=== PATIENT | female | born 1965 | race Caucasian/White ===

== ENCOUNTER 2017-10-22 07:32 | Inpatient (IN) | payer OTHER ==
[2017-10-22] VITALS (7 sets, daily range): BP systolic 113–144; BP diastolic 65–95; PULSE 65–119; RESP 14–18; TEMP 98–99.3; O2SAT 93–97
[~2017-10-22] VITALS: Ht 170.2 cm; Wt 85.0 kg
[~2017-10-22 07:32] MED LIST: BENZ100 PO; DIFL150T PO; LISI-515 PO
[2017-10-22] MEDS ORDERED: SODIUM CHLORIDE 0.9% FLUSH 10 ML FLUSH IV FLUSH PRN ×2 (08:00→11:45)
[2017-10-22] MEDS ORDERED: MORPHINE SULFATE 4 MG/ML INJ IV PUSH ONE (08:00)
[2017-10-22] MEDS ORDERED: ONDANSETRON HCL 4 MG/2 ML VIAL IVP ONE (08:00)
[2017-10-22] MEDS ORDERED: SODIUM CHLOR 0.9% 1000 ML INJ 1,000 ML IV ONE ×2 (08:00→09:30)
--- NOTE | 2017-10-22 08:00 | PD ---
HPI . Abdominal pain Chief Complaint: Abdominal Pain Time Seen by Provider: 07:51 Travel History International Travel<30 days: No Contact w/Intl Traveler<30days: No Traveled to known affect area: No History of Present Illness HPI This patient presents with a chief complaint of epigastric abdominal pain. Onset was last night. It is associated with emesis and diarrhea. She rates her pain 10/10 and states that she has had 10+ episodes of emesis and diarrhea. She has had associated chills. Patient reports previous gallstone pancreatitis. The gallstone pancreatitis occurred shortly after a cholecystectomy. That was about 2 years ago. She has had no further problems since that time. Her symptoms today feel similar to her symptoms when she had pancreatitis. PFSH Past Medical History Cancer: Yes (RIGHT BREAST) Chemotherapy: Yes Diminished Hearing: No Hypertension: Yes Psychiatric: No Immunizations Current: No Radiation Therapy: Yes (FINISHED A MONTH AGO) ?: Not Menopausal: Yes Past Surgical History Cholecystectomy: Yes Gynecologic Surgery: Yes (LUMPECTOMY ON RIGHT BREAST) Other Surgery: Yes Social History Alcohol Use: Yes ([facility]) Tobacco Use: No Substance Use: No Allergies-Medications (Allergen,Severity, Reaction): Coded Allergies: No Known Allergies (Unverified Allergy, Unknown, 10/22/17) Reported Meds & Prescriptions Reported Meds & Active Scripts Active Lisinopril 20 Mg Tab 20 Mg PO DAILY Review of Systems Except as stated in HPI: all other systems reviewed are Neg General / Constitutional: Positive: Chills Cardiovascular: Positive: Palpitations Gastrointestinal: Positive: Nausea, Vomiting, Diarrhea, Abdominal Pain Genitourinary: No: Urgency, Frequency, Dysuria Physical Exam Narrative GENERAL: Awake and alert and in no acute distress. SKIN: warm/dry. HEAD: Normocephalic. Atraumatic. EYES: Pupils equal and round. No scleral icterus. No injection or drainage. ENT: No nasal bleeding or discharge. Mucous membranes pink and moist. NECK: Trachea midline. Full range of motion without pain.. CARDIOVASCULAR: Regular rate and rhythm. Heart sounds are normal. RESPIRATORY: No accessory muscle use. Clear to auscultation. Breath sounds equal bilaterally. GASTROINTESTINAL: Abdomen soft. Mild epigastric tenderness with no guarding or rebound. Bowel sounds present. Nondistended. MUSCULOSKELETAL: No obvious deformities. NEUROLOGICAL: Awake and alert. No obvious cranial nerve deficits. Motor grossly within normal limits. Normal speech. PSYCHIATRIC: Appropriate mood and affect; insight and judgment normal. Data Data Last Documented VS Vital Signs Date Time Temp Pulse Resp B/P (MAP) Pulse Ox O2 Delivery O2 Flow Rate FiO2 10/22/17 07:33 98.8 119 14 133/95 (108) 95 Orders Orders Complete Blood Count With Diff (10/22/17 07:51) Comprehensive Metabolic Panel (10/22/17 07:51) Lipase (10/22/17 07:51) Ct Abd/Pel W Iv Contrast(Rout) (10/22/17 07:51) Iv Access Insert/Monitor (10/22/17 07:51) Morphine Inj (Morphine Inj) (10/22/17 08:00) Ondansetron Inj (Zofran Inj) (10/22/17 08:00) Sodium Chloride 0.9% Flush (Ns Flush) (10/22/17 08:00) Sodium Chlor 0.9% 1000 Ml Inj (Ns 1000 M (10/22/17 08:00) Piperacil-Tazo 4.5 Gm Premix (Zosyn 4.5 (10/22/17 08:58) Lactic Acid (10/22/17 09:03) Blood Culture (10/22/17 09:03) Iohexol 350 Inj (Omnipaque 350 Inj) (10/22/17 09:15) Sodium Chlor 0.9% 1000 Ml Inj (Ns 1000 M (10/22/17 09:30) Admit Order (Ed Use Only) (10/22/17 10:21) Labs Laboratory Tests Test 10/22/17 08:05 10/22/17 09:25 White Blood Count 26.5 TH/MM3 Red Blood Count 7.65 MIL/MM3 Hemoglobin 17.7 GM/DL Hematocrit 54.4 % Mean Corpuscular Volume 71.1 FL Mean Corpuscular Hemoglobin 23.1 PG Mean Corpuscular Hemoglobin Concent 32.5 % Red Cell Distribution Width 18.8 % Platelet Count 319 TH/MM3 Mean Platelet Volume 9.1 FL Neutrophils (%) (Auto) 92.6 % Lymphocytes (%) (Auto) 2.1 % Monocytes (%) (Auto) 3.0 % Eosinophils (%) (Auto) 1.7 % Basophils (%) (Auto) 0.6 % Neutrophils # (Auto) 24.5 TH/MM3 Lymphocytes # (Auto) 0.6 TH/MM3 Monocytes # (Auto) 0.8 TH/MM3 Eosinophils # (Auto) 0.5 TH/MM3 Basophils # (Auto) 0.2 TH/MM3 CBC Comment AUTO DIFF Differential Comment AUTO DIFF CONFIRMED Platelet Estimate NORMAL Platelet Morphology Comment ENLARGED Blood Urea Nitrogen 21 MG/DL Creatinine 0.69 MG/DL Random Glucose 141 MG/DL Total Protein 7.3 GM/DL Albumin 3.5 GM/DL Calcium Level 8.9 MG/DL Alkaline Phosphatase 159 U/L Aspartate Amino Transf (AST/SGOT) 14 U/L Alanine Aminotransferase (ALT/SGPT) 19 U/L Total Bilirubin 0.7 MG/DL Sodium Level 139 MEQ/L Potassium Level 4.1 MEQ/L Chloride Level 105 MEQ/L Carbon Dioxide Level 25.2 MEQ/L Anion Gap 9 MEQ/L Estimat Glomerular Filtration Rate 89 ML/MIN Lipase 102 U/L Lactic Acid Level 1.9 mmol/L MDM Medical Decision Making Medical Screen Exam Complete: Yes Emergency Medical Condition: Yes Differential Diagnosis Differential diagnosis of abdominal pain includes but is not limited to gastritis, pancreatitis, hepatitis, gastroenteritis, gallbladder disease, constipation, urinary retention, UTI, peptic ulcer disease, diverticulitis or appendicitis Narrative Course This patient presents with epigastric abdominal pain associated with nausea, vomiting and diarrhea. She'll be treated with a liter of fluid along with IV morphine and Zofran. Labs and CT are pending. CBC & BMP Diagram 10/22/17 08:05 Total Protein 7.3, Albumin 3.5, Calcium Level 8.9, Alkaline Phosphatase 159 H, Aspartate Amino Transf (AST/SGOT) 14 L, Alanine Aminotransferase (ALT/SGPT) 19, Total Bilirubin 0.7 CT abd/pelvis: 1. Nonocclusive thrombus involving the portal vein. 2. No wall thickening involving the bowel structures to suggest venous congestion or acute inflammatory process. 3. New splenomegaly with a diffusely heterogeneous spleen concerning for an infiltrating process. The splenic vein is patent and therefore I do not feel this relates to venous congestion. 4. Prior cholecystectomy. Sepsis Criteria SIRS Criteria (2 or more): Heart rate over 90, WBC > 89584, < 4000 or > 10% bands Sepsis Criteria (SIRS+source): Infect source susp/known Criteria Outcome: Meets SIRS criteria Physician Communication Physician Communication Dr. Heyen with Family Practice Diagnosis Primary Impression: Epigastric pain Additional Impressions: Vomiting and diarrhea Splenomegaly Portal vein thrombosis Admitting Information Admitting Physician Requests: Admit Patient Instructions: Acute Nausea and Vomiting (DC), Epigastric Pain (ED), General Instructions, Narcotic given in the ED Condition: Stable Hilda Russell MD Oct 22, 2017 08:00
[2017-10-22 08:19] LABS: AUTOMATED NEUTROPHIL # 24.5 TH/MM3 (1.8-7.7); BASOPHIL # 0.2 TH/MM3 (0-0.2); BASOPHIL % 0.6 % (0.0-2.0); EOSINOPHIL # 0.5 TH/MM3 (0-0.4); EOSINOPHIL % 1.7 % (0.0-4.0); HEMATOCRIT 54.4 % (35.0-46.0); LYMPH % 2.1 % (9.0-44.0); LYMPHOCYTE # 0.6 TH/MM3 (1.0-4.8); MEAN CELL VOLUME 71.1 FL (80.0-100.0); MEAN CORPUSCULAR HEMOGLOBIN 23.1 PG (27.0-34.0); MEAN CORPUSCULAR HGB CONC 32.5 % (32.0-36.0); NEUT % 92.6 % (16.0-70.0); PLATELET COUNT 319 TH/MM3 (150-450); RED CELL DISTRIBUTION WIDTH 18.8 % (11.6-17.2); WHITE BLOOD COUNT 26.5 TH/MM3 (4.0-11.0)
[2017-10-22 08:38] LABS: ALT (GPT) 19 U/L (10-53); ANION GAP 9 MEQ/L (5-15); AST (GOT) 14 U/L (15-37); BICARBONATE 25.2 MEQ/L (21.0-32.0); BLOOD UREA NITROGEN 21 MG/DL (7-18); CHLORIDE 105 MEQ/L (98-107); GLOMERULAR FILTRATION RATE 89 ML/MIN (>89); POTASSIUM 4.1 MEQ/L (3.5-5.1); RED BLOOD COUNT 7.65 MIL/MM3 (4.00-5.30); SODIUM (NA) 139 MEQ/L (136-145)
[2017-10-22 08:40] LABS: ALKALINE PHOSPHATASE 159 U/L (45-117); TOTAL BILIRUBIN ADULT 0.7 MG/DL (0.2-1.0)
[2017-10-22 08:41] LABS: HEMO FLAGS AUTO DIFF
[2017-10-22] MEDS ORDERED: PIPERACIL-TAZO 4.5 GM PREMIX 100 ML IV STA (08:58)
[2017-10-22] MEDS ORDERED: IOHEXOL 350 MG/ML 10 ML VIAL (for RAD DIAG) IVCONTRAST ONE (09:15)
[2017-10-22 09:16] LABS: PLATELET ESTIMATE SMEAR NORMAL (NORMAL)
[2017-10-22 09:17] LABS: PLATELET MORPHOLOGY ENLARGED (NORMAL); SCAN/DIFF AUTO DIFF CONFIRMED
--- NOTE | 2017-10-22 09:28 | RADRPT ---
EXAM DATE/TIME: 10/22/2017 09:06 [facility] COMPARISON: CT ABDOMEN & PELVIS W CONTRAST, November 09, 2015, 21:25. INDICATIONS : Epigastric pain, nausea and vomiting. IV CONTRAST: 69 cc Omnipaque 350 (iohexol) IV ORAL CONTRAST: No oral contrast ingested. RADIATION DOSE: 10.75 CTDIvol (mGy) MEDICAL HISTORY : Hypertension. Carcinoma, breast. SURGICAL HISTORY : Cholecystectomy. ENCOUNTER: Initial ACUITY: 1 day PAIN SCALE: 5/10 LOCATION: mid abdomen TECHNIQUE: Volumetric scanning of the abdomen and pelvis was performed. Using automated exposure control and ad justment of the mA and/or kV according to patient size, radiation dose was kept as low as reasonably achievable to obtain optimal diagnostic quality images. DICOM format image data is available electro nically for review and comparison. FINDINGS: LOWER LUNGS: The visualized lower lungs are clear. LIVER: There is a filling defect seen involving the portal vein. This is nonocclusive in nature. The portal vein is otherwise patent. The liver shows a mildly heterogeneous background. No discrete mass or duct al dilatation. The gallbladder is surgically absent. SPLEEN: The spleen is grossly enlarged which is a new finding. It measures 15.5 cm in anterior to posterior d imension. It has a heterogeneous density. This is all new from the prior examination. The splenic vei n is patent. PANCREAS: Within normal limits. KIDNEYS: Normal in size and shape. There is no mass, stone or hydronephrosis. ADRENAL GLANDS: Within normal limits. VASCULAR: There is no aortic aneurysm. BOWEL/MESENTERY: The stomach, small bowel, and colon demonstrate no acute abnormality. There is no free intraperitone al air or fluid. ABDOMINAL WALL: Within normal limits. RETROPERITONEUM: There is no lymphadenopathy. BLADDER: No wall thickening or mass. REPRODUCTIVE: Within normal limits. INGUINAL: There is no lymphadenopathy or hernia. MUSCULOSKELETAL: Within normal limits for patient age. CONCLUSION: 1. Nonocclusive thrombus involving the portal vein. 2. No wall thickening involving the bowel structures to suggest venous congestion or acute inflammato ry process. 3. New splenomegaly with a diffusely heterogeneous spleen concerning for an infiltrating process. The splenic vein is patent and therefore I do not feel this relates to venous congestion. 4. Prior cholecystectomy. Luke Conti Jr., MD on October 22, 2017 at 9:17 Board Certified Radiologist. This report was verified electronically.
--- NOTE | 2017-10-22 10:58 | HHI.HP ---
[facility] Service Family Medicine Primary Care Physician Mai Porter MD Admission Diagnosis epigastric pain Diagnoses: International Travel<30 Days: No Contact w/Intl Traveler<30days: No Known Affected Area: No History of Present Illness Mrs. Butler is a 51 yo F with PMH of ductal carcinoma in situ (s/p lumpectomy, radiation), HTN, gallstone pancreatitis s/p cholecystectomy who presented for evaluation of abdominal pain, vomiting, and diarrhea. Patient's symptoms initially started with nausea and vomiting last night; her vomitus turned greenish in color. Patient also began to experience abdominal pain and diarrhea. Abdominal pain is worst in central abdomen in umbilical and epigastric areas but radiates all over her abdomen. Patient also reports L flank pain. Patient has taken Pepto Bismol for pain without improvement. Patient describes her pain as constant with some stabbing nature. Patient's diarrhea was frequent; patient did not see change in stool color or evidence of blood in stool. Patient initially thought her abdominal pain was similar to prior episode of pancreatitis in 11/2015. Patient also noticed having a rapid heartbeat overnight. No chest pain, shortness of breath, or fevers; patient felt subjective chills. No known sick contacts. Patient has had normal urination. Prior to recent onset of symptoms, patient has felt normally. Patient lost ~30 lbs in 8 mo but attributes this to a new exercise regimen. Patient takes Lisinopril for high blood pressure. Patient last seen by her PCP Dr. Porter ~ 1 mo ago. Patient has chronic hemorrhoids with occasional blood in stool. Patient has had improvement in abdominal pain and nausea since arriving in ED. Review of Systems Constitutional: COMPLAINS OF: Chills, DENIES: Fever Eyes: DENIES: Blurred vision, Diplopia Ears, nose, mouth, throat: DENIES: Nasal discharge, Running Nose Respiratory: DENIES: Cough, Shortness of breath Cardiovascular: COMPLAINS OF: Palpitations (feeling of rapid heart rate), DENIES: Chest pain Gastrointestinal: COMPLAINS OF: Abdominal pain, Diarrhea, Vomiting Genitourinary: DENIES: Urgency, Dysuria Integumentary: DENIES: Abnormal pigmentation, Rash Hematologic/lymphatic: DENIES: Bruising, Lymphadenopathy Neurologic: DENIES: Abnormal gait, Headache Psychiatric: DENIES: Anxiety, Confusion Past Family Social History Past Medical History PMH breast cancer- ductal carcinoma in situ- s/p lumpectomy and radiation. Mammogram normal in 08/2017 pancreatitis, choledocholithiasis s/p hysterectomy Past Surgical History PSH Cholecystectomy Colonoscopy in the last ~1 year; everything looked ok Upper endoscopy normal Allergies: Coded Allergies: No Known Allergies (Unverified Allergy, Unknown, 10/22/17) Family History FH No cancer or cardiovascular disease in parents Paternal GM with breast cancer Brother with asthma Social History Social History Patient does not smoke Alcohol- 3-4 drinks/week No drug use Lives with cat at home Physical Exam Vital Signs Vital Signs Date Time Temp Pulse Resp B/P (MAP) Pulse Ox O2 Delivery O2 Flow Rate FiO2 10/22/17 07:33 98.8 119 14 133/95 (108) 95 Physical Exam GENERAL: Patient appears comfortable, in no acute distress. SKIN: Warm and dry, no rashes appreciated EYES: No scleral icterus, injection, or drainage. HENT: Head: Normocephalic. Mouth: No lesions appreciated. Pharynx: Benign exam without erythema or exudate. NECK: No appreciated thyromegaly Lymph: No cervical, supraclavicular, or axillary lymphadenopathy CARDIOVASCULAR: Regular rate and rhythm without murmurs. Normal peripheral perfusion in lower extremities. RESPIRATORY: Normal respiratory rate. Lungs clear to auscultation bilaterally. GASTROINTESTINAL: Abdomen soft, nondistended. Epigastric pain to palpation. Splenic tip palpable. Bowel sounds normal. MUSCULOSKELETAL: No lower extremity swelling. No appreciated calf asymmetry NEURO/PSYCH: Awake, alert, and oriented. Cranial nerves grossly normal. Grossly normal motor and sensory function. Laboratory Laboratory Tests Test 10/22/17 08:05 10/22/17 09:25 White Blood Count 26.5 Red Blood Count 7.65 Hemoglobin 17.7 Hematocrit 54.4 Mean Corpuscular Volume 71.1 Mean Corpuscular Hemoglobin 23.1 Mean Corpuscular Hemoglobin Concent 32.5 Red Cell Distribution Width 18.8 Platelet Count 319 Mean Platelet Volume 9.1 Neutrophils (%) (Auto) 92.6 Lymphocytes (%) (Auto) 2.1 Monocytes (%) (Auto) 3.0 Eosinophils (%) (Auto) 1.7 Basophils (%) (Auto) 0.6 Neutrophils # (Auto) 24.5 Lymphocytes # (Auto) 0.6 Monocytes # (Auto) 0.8 Eosinophils # (Auto) 0.5 Basophils # (Auto) 0.2 CBC Comment AUTO DIFF Differential Comment AUTO DIFF CONFIRMED Platelet Estimate NORMAL Platelet Morphology Comment ENLARGED Blood Urea Nitrogen 21 Creatinine 0.69 Random Glucose 141 Total Protein 7.3 Albumin 3.5 Calcium Level 8.9 Alkaline Phosphatase 159 Aspartate Amino Transf (AST/SGOT) 14 Alanine Aminotransferase (ALT/SGPT) 19 Total Bilirubin 0.7 Sodium Level 139 Potassium Level 4.1 Chloride Level 105 Carbon Dioxide Level 25.2 Anion Gap 9 Estimat Glomerular Filtration Rate 89 Lipase 102 Lactic Acid Level 1.9 Date/Time Source Procedure Growth Status 10/22/17 09:25 Blood Peripheral Aerobic Blood Culture Pending Received 10/22/17 09:25 Blood Peripheral Anaerobic Blood Culture Pending Received Result Diagram: 10/22/1780410/22/17804 Imaging Last Impressions Abdomen/Pelvis CT 10/22/17 0751 Signed Impressions: Service Date/Time: Sunday, October 22, 2017 09:06 - CONCLUSION: 1. Nonocclusive thrombus involving the portal vein. 2. No wall thickening involving the bowel structures to suggest venous congestion or acute inflammatory process. 3. New splenomegaly with a diffusely heterogeneous spleen concerning for an infiltrating process. The splenic vein is patent and therefore I do not feel this relates to venous congestion. 4. Prior cholecystectomy. Luke Conti Jr., MD Caprini VTE Risk Assessment Caprini VTE Risk Assessment: Mod/High Risk (score >= 2) Caprini Risk Assessment Model Point Value = 1 Point Value = 2 Point Value = 3 Point Value = 5 Age 41-60 Minor surgery BMI > 25 kg/m2 Swollen legs Varicose veins or History of unexplained or recurrent spontaneous Oral contraceptives or hormone replacement Sepsis (< 1 month) Serious lung disease, including pneumonia (< 1 month) Abnormal pulmonary function Acute myocardial infarction Congestive heart failure (< 1 month) History of inflammatory bowel disease Medical patient at bed rest Age 61-74 Arthroscopic surgery Major open surgery (> 45 min) Laparoscopic surgery (> 45 min) Malignancy Confined to bed (> 72 hours) Immobilizing plaster cast Central venous access Age >= 75 History of VTE Family history of VTE Factor V Leiden Prothrombin [id number] Lupus anticoagulant Anticardiolipin antibodies Elevated serum homocysteine Heparin-induced thrombocytopenia Other congenital or acquired thrombophilia Stroke (< 1 month) Elective arthroplasty Hip, pelvis, or leg fracture Acute spinal cord injury (< 1 month) Prophylaxis Regimen Total Risk Factor Score Risk Level Prophylaxis Regimen 0-1 Low Early ambulation 2 Moderate Order ONE of the following: *Sequential Compression Device (SCD) *Heparin 5000 units SQ BID 3-4 Higher Order ONE of the following medications: *Heparin 5000 units SQ TID *Enoxaparin/Lovenox 40 mg SQ daily (WT < 150 kg, CrCl > 30 mL/min) *Enoxaparin/Lovenox 30 mg SQ daily (WT < 150 kg, CrCl > 10-29 mL/min) *Enoxaparin/Lovenox 30 mg SQ BID (WT < 150 kg, CrCl > 30 mL/min) AND/OR *Sequential Compression Device (SCD) 5 or more Highest Order ONE of the following medications: *Heparin 5000 units SQ TID (Preferred with Epidurals) *Enoxaparin/Lovenox 40 mg SQ daily (WT < 150 kg, CrCl > 30 mL/min) *Enoxaparin/Lovenox 30 mg SQ daily (WT < 150 kg, CrCl > 10-29 mL/min) *Enoxaparin/Lovenox 30 mg SQ BID (WT < 150 kg, CrCl > 30 mL/min) AND *Sequential Compression Device (SCD) Assessment and Plan Assessment and Plan Mrs. Butler is a 51 yo F with: Code Status Full Code Problem List: (1) Portal vein thrombosis ICD Codes: I81 - Portal vein thrombosis Status: Acute Plan: Hematology consulted (polycythemia, leukocytosis with splenic infiltrate ; questions regarding diagnostic work-up and anticoagulation management) -Will initiate Lovenox 85mg BID -Will evaluate further later today -PT/INR ordered -Hemoccult performed- questionable/seemingly faintly positive in the setting of chronic hemorrhoids and occasional blood in stool; not suggestive of GI bleed. Will monitor for bleeding on therapeutic Lovenox; do not believe findings warrant holding anticoagulation -Will check AFP Impression: Unclear etiology. Patient with prior cholecystectomy after gallstone pancreatitis but no knowledge of cirrhosis/hepatic disease. Alcohol intake 3-4 drinks/week. CT A/P 10/22- Nonocclusive thrombus involving portal vein; no wall thickening involving the bowel structures to suggest venous congestion or acute inflammatory process. New splenomegaly with a diffusely heterogenous spleen concerning for an infiltrating process. Splenic vein patent not suspected related to venous congestion. Prior cholecystectomy (2) Splenomegaly ICD Codes: R16.1 - Splenomegaly, not elsewhere classified Status: Acute Plan: -Hematology consulted -Will continue Zosyn started in ED for coexistent leukocytosis and tachycardia on admission Impression: Unclear etiology CT A/P 10/22- Nonocclusive thrombus involving portal vein; no wall thickening involving the bowel structures to suggest venous congestion or acute inflammatory process. New splenomegaly with a diffusely heterogenous spleen concerning for an infiltrating process. Splenic vein patent not suspected related to venous congestion. Prior cholecystectomy (3) Vomiting and diarrhea ICD Codes: R11.10 - Vomiting, unspecified; R19.7 - Diarrhea, unspecified Status: Acute Plan: -Will consult GI -Clear fluids; will advance -Will check GGT for Alk P elevation -Will check AFP for portal thrombosis -Zofran 4mg IV PRN for nausea Impression: Vomiting and diarrhea in association with portal thrombosis. CMP normal with exception of mild ALKP elevation. Normal lipase. Leukocytosis Prior normal upper endoscopy and colonoscopy per patient but repeat colonoscopy planned at more frequent interval. Prior cholecystectomy (4) SIRS (systemic inflammatory response syndrome) ICD Codes: R65.10 - Systemic inflammatory response syndrome (SIRS) of non- infectious origin without acute organ dysfunction Status: Acute Plan: -Will continue Zosyn started in ED in case of infectious etiology Impression: Tachycardia on admission (119 bpm) with leukocytosis (WBC 26.5k with left shift); no known source but splenic infiltrate on CT imaging Lactic acid 1.9 Blood cultures pending (5) Elevated hemoglobin ICD Codes: D58.2 - Other hemoglobinopathies Status: Acute Plan: -Continue IV NS at 125ml/hr -Will trend CBC -Hematology consulted Impression: Hgb 17.7, Hct 54.4, RBC 7.65. In setting of leukocytosis (WBC 26.5) and PLT 319; likely hemoconcentration from vomiting/diarrhea (6) HTN (hypertension) ICD Codes: I10 - Essential (primary) hypertension Status: Chronic Plan: Impression: PMH HTN on Lisinopril 20mg daily -Will continue Lisinopril 20mg daily -Will have Vasotec 1.25mg IV PRN when not able to tolerate oral intake (7) DVT prophylaxis Status: Acute Plan: Will give therapeutic Lovenox 85mg BID for portal thrombus Will plan to hold if splenectomy needed (8) Fluids, Electrolyes, and Nutrition Status: Acute Plan: Fluids: Continue maintenance NS at 125ml/hr Electrolytes: wnl on admission; will monitor and replete as needed Nutrition: Will advance diet as tolerated Physician Certification 2 Midnight Certification Type: Admission for Inpatient Services Order for Inpatient Services The services are ordered in accordance with Medicare regulations or non- Medicare payer requirements, as applicable. In the case of services not specified as inpatient-only, they are appropriately provided as inpatient services in accordance with the 2-midnight benchmark. Estimated LOS (days): 3 days is the estimated time the patient will need to remain in the hospital, assuming treatment plan goals are met and no additional complications. Post-Hospital Plan: Home Problem Qualifiers (1) HTN (hypertension): Qualified Codes: I10 - Essential (primary) hypertension Jose Tirado MD, R3 Oct 22, 2017 10:58
[2017-10-22] MEDS ORDERED: ACETAMINOPHEN 325 MG TAB PO PRN (11:45)
[2017-10-22] MEDS ORDERED: ONDANSETRON HCL 4 MG/2 ML VIAL IVP PRN (11:45)
[2017-10-22] MEDS ORDERED: NALOXONE HCL 0.4 MG/ML AMP IV PUSH PRN (11:45)
[2017-10-22] MEDS ORDERED: ONDANSETRON HCL 4 MG/2 ML VIAL IV PUSH PRN (12:45)
[2017-10-22] MEDS ORDERED: ENALAPRILAT 1.25 MG/ML VIAL IV PUSH PRN (12:45)
--- NOTE | 2017-10-22 12:49 | RADRPT ---
EXAM DATE/TIME: 10/22/2017 12:06 [facility] COMPARISON: No previous studies available for comparison. INDICATIONS : Nausea, vomiting, diarrhea. MEDICAL HISTORY : Carcinoma, breast. Hypertension. SURGICAL HISTORY : None. ENCOUNTER: Initial ACUITY: 2 days PAIN SCORE: 0/10 LOCATION: Bilateral chest FINDINGS: A single view of the chest demonstrates the lungs to be symmetrically aerated without evidence of mas s, infiltrate or effusion. The cardiomediastinal contours are unremarkable. Osseous structures are intact with a mild levoscoliosis of the dorsal spine which may be positional. CONCLUSION: No acute cardiopulmonary process. Marcos Galeana MD on October 22, 2017 at 12:46 Board Certified Radiologist. This report was verified electronically.
[2017-10-22] MEDS: SODIUM CHLOR 0.9% 1000 ML INJ 1,000 ML IV SCH ×2 (13:23→19:39)
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
[2017-10-22 14:17] LABS: BACTERIA, URINE OCC /hpf; BLOOD, URINE NEG (NEG); COMMENT (UR) CULT NOT INDICATED; CULTURE IF INDICATED CULT NOT INDICATED; GLUCOSE,URINE NEG (NEG); KETONE, URINE NEG (NEG); MUCUS URINE FEW /lpf (OCC); NITRITE,URINE NEG (NEG); SQUAMOUS EPITHELIAL CELL URINE 1 /hpf (0-5); URINE COLOR YELLOW (YELLW/STRAW)
[2017-10-22] MEDS: PANTOPRAZOLE SOD 40 MG DELAYED RELEASE TAB PO SCH ×2 (15:48→20:55)
[2017-10-22] MEDS: ENOXAPARIN SODIUM 100 MG/ML SYRINGE SQ SCH (15:48)
[2017-10-22] MEDS: PIPERACIL-TAZO 3.375 GM PREMIX 50 ML IV SCH ×2 (15:49→20:54)
[2017-10-22 17:05] LABS: INTERNATIONAL NORMALIZED RATIO 1.3 RATIO; PROTHROMBIN TIME - PATIENT 12.7 SEC (9.8-11.6)
[2017-10-22] MEDS ORDERED: ACETAMINOPHEN 500 MG CPLT PO PRN (20:30)
[2017-10-22] MEDS: MORPHINE SULFATE 2 MG/ML INJ IM PRN (20:56)
[2017-10-22] MEDS: SODIUM CHLORIDE 0.9% FLUSH 10 ML FLUSH IV FLUSH SCH (20:56)
[2017-10-23 00:42] VITALS: BP 168/76; PULSE 79; RESP 20; TEMP 98.6; O2SAT 94
[2017-10-23] MEDS: ENOXAPARIN SODIUM 100 MG/ML SYRINGE SQ SCH ×2 (03:14→17:07)
[2017-10-23] MEDS: PIPERACIL-TAZO 3.375 GM PREMIX 50 ML IV SCH ×4 (03:14→21:52)
[2017-10-23] MEDS: SODIUM CHLOR 0.9% 1000 ML INJ 1,000 ML IV SCH ×3 (03:14→21:53)
[2017-10-23] MEDS: MORPHINE SULFATE 2 MG/ML INJ IM PRN ×2 (03:19→17:16)
[2017-10-23 04:20] VITALS: BP 139/67; PULSE 78; RESP 18; TEMP 98.2; O2SAT 96
[2017-10-23] MEDS: PANTOPRAZOLE SOD 40 MG DELAYED RELEASE TAB PO SCH ×2 (08:37→21:52)
[2017-10-23] MEDS: LISINOPRIL 20 MG TAB PO SCH (08:38)
[2017-10-23] MEDS: SODIUM CHLORIDE 0.9% FLUSH 10 ML FLUSH IV FLUSH SCH ×2 (08:38→21:52)
--- NOTE | 2017-10-23 09:13 | MB ---
cc: DELIA BETHEA MD DATE OF CONSULTATION 10/22/2017 DATE OF 1965 CHIEF COMPLAINT Portal vein thrombosis. HISTORY OF PRESENT ILLNESS Ms. 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 Her symptoms started 24 hours prior to admission. CT of the abdomen and pelvis showed nonocclusive thrombus involving the portal vein. No wall thickening involving the bowel structures to suggest either congestion or acute inflammatory process. New splenomegaly with a diffusely heterogeneous spleen concerning for an infiltrating process. The splenic vein is patent. Prior cholecystectomy. Chest x-ray on admission shows no acute cardiopulmonary process. Laboratory studies show a white blood cell count 26.5, hemoglobin 17.7, platelet count 319,000 with a differential with an elevated ANC, low absolute lymphocyte count and elevated absolute eosinophil count. Chemistry studies with a creatinine of 0.69, AST 14, ALT 19, alk phos 159, total protein 7.3, albumin 3.5. Lipase is 102 which is normal. AFP is normal at 3.1. GGT is 49. Total bili is 0.7. Lactic acid is 1.9. She was started on Lovenox therapy and IV fluids. REVIEW OF SYSTEMS Nausea, vomiting, diarrhea, abdominal pain. Intentional weight loss. All other review of systems is negative. PAST MEDICAL HISTORY 1. Hypertension. 2. History of gallstone pancreatitis. 3. History of cholelithiasis status post removal of gallbladder. 4. DCIS in 2015 status post lumpectomy and radiation therapy. Continues to follow with Dr. Arrington. PAST SURGICAL HISTORY 1. Cholecystectomy. 2. Lumpectomy. 3. EGD and colonoscopy last year which were normal. ALLERGIES No known drug allergies. FAMILY HISTORY No family history of blood clot or malignancy. SOCIAL HISTORY The patient is a nonsmoker. She drinks alcohol one glass approximately three times a week. Denies tobacco and illegal drug use. PHYSICAL EXAMINATION GENERAL: A well-developed, well-nourished lady in no distress. HEAD: Normocephalic, atraumatic. EYES: Pupils equal, round and reactive to light and accommodation. Extraocular muscles intact. Oropharynx is clear. CARDIOVASCULAR: Regular rhythm. No murmurs. PULMONARY: Clear to auscultation bilaterally. ABDOMEN: Soft, nontender, nondistended with bowel sounds present. EXTREMITIES: No edema. NEUROLOGIC: Grossly nonfocal. PSYCHIATRIC: Appropriate mood and affect. ASSESSMENT AND RECOMMENDATIONS Portal vein thrombosis, acute with symptoms. The patient will need 6 months of anticoagulation therapy. Will start off while inpatient with Lovenox therapy. Will continue to closely monitor symptoms. Once cleared for discharge will discharge the patient home on apixaban therapy. Discussed anticoagulation with Coumadin versus apixaban versus Xarelto and patient decided to move forward with apixaban. This will be started in the on hospital discharge/ in the outpatient setting once her acute issues have resolved. She will need 6 months of anticoagulation therapy. The causes of portal vein thrombosis include abdominal sepsis, recent abdominal surgery, cirrhosis, collagen vascular disease, tumor, inflammatory bowel disease , pancreatitis, myeloproliferative neoplasm. The patient was in her normal state of health when she acutely developed symptoms. She does not have any history of liver cirrhosis. No signs or symptoms suggestive of collagen vascular disease. Imaging studies with no invasion of the portal vein by tumor and no compression by tumor. AST is within normal limits. No history of inflammatory bowel disease. She does have an elevated white blood cell count and hemoglobin, however, this could certainly be hemoconcentration given diarrhea and vomiting when she came in. She is not on oral contraceptives. Will check for inherited thrombophilia. No history of pancreatitis. Will check for PNH and other myeloproliferative neoplasms. No indication of retroperitoneal thrombosis or shunt or trauma. She does have a splenomegaly with leukocytosis and elevated hemoglobin. A contributing factor for this is inflammation from clot and hemoconcentration. Will check flow cytometry to rule out PNH and to evaluate for other inherited thrombophilia. Will repeat CBC tomorrow morning. MD BARBARA Loera/JAVON /12:08 AM /8:45 AM GUILLERMINA
--- NOTE | 2017-10-23 11:31 | RADRPT ---
EXAM DATE/TIME: 10/23/2017 10:29 [facility] COMPARISON: No previous studies available for comparison. INDICATIONS : Left arm swelling. MEDICAL HISTORY : Hypertension. Pancreatitis. Right breast cancer. SURGICAL HISTORY : Cholecystectomy. Right breast lumpectomy. ENCOUNTER: Initial ACUITY: 1 day PAIN SCORE: 5/10 LOCATION: Left arm. FINDINGS: There is spontaneous flow documented in the brachial, basilic, cephalic, axillary, and subclavian vei ns. The vessels are compressible and augmentation response is documented. No filling defects are se en. The flow is phasic with respiration. Direction of flow in the jugular vein is caudal. CONCLUSION: Normal examination. Luke Conti Jr., MD on October 23, 2017 at 11:19 Board Certified Radiologist. This report was verified electronically.
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
--- NOTE | 2017-10-23 12:00 | PD.ONC.PN ---
Subjective Subjective Remarks Afebrile overnight. Patient resting in room in nad. She had cramping abdominal pain and some nausea this morning, but is feeling better now. No bleeding. tolerating Lovenox shots. Objective Data Date Time Temp Pulse Resp B/P (MAP) Pulse Ox O2 Delivery O2 Flow Rate FiO2 10/23/17 04:20 98.2 78 18 139/67 (91) 96 10/23/17 03:24 16 10/23/17 00:42 98.6 79 20 168/76 (106) 94 10/22/17 21:19 98.0 81 18 140/68 (92) 93 10/22/17 17:28 99.3 85 18 136/85 (102) 95 10/22/17 14:45 84 10/22/17 12:44 98.5 81 18 144/72 (96) 96 10/22/17 12:20 10/23/17 10/23/17 10/23/17 07:00 15:00 23:00 Intake Total 900 ml Balance 900 ml Result Diagram: 10/22/17 0810/22/17 0805 Laboratory Results Laboratory Tests Test 10/22/17 12:13 10/22/17 13:30 10/22/17 14:35 10/22/17 16:43 Gamma Glutamyl Transpeptidase 49 U/L Urine Color YELLOW Urine Turbidity CLEAR Urine pH 6.0 Urine Specific [place] GREATER THAN 1.050 Urine Protein TRACE mg/dL Urine Glucose (UA) NEG mg/dL Urine Ketones NEG mg/dL Urine Occult Blood NEG Urine Nitrite NEG Urine Bilirubin NEG Urine Urobilinogen LESS THAN 2.0 MG/DL Urine Leukocyte Esterase NEG Urine RBC LESS THAN 1 /hpf Urine WBC 2 /hpf Urine Squamous Epithelial Cells 1 /hpf Urine Bacteria OCC /hpf Urine Mucus FEW /lpf Microscopic Urinalysis Comment CULT NOT INDICATED Tumor Marker Alpha Fetoprotein 3.1 NG/ML Prothrombin Time 12.7 SEC Prothromb Time International Ratio 1.3 RATIO Culture Results Microbiology Date/Time Source Procedure Growth Status 10/22/17 09:25 Blood Peripheral Aerobic Blood Culture - Preliminary NO GROWTH IN 1 DAY Resulted 10/22/17 09:25 Blood Peripheral Anaerobic Blood Culture - Preliminary NO GROWTH IN 1 DAY Resulted 10/22/17 09:25 Blood Peripheral Aerobic Blood Culture - Preliminary NO GROWTH IN 1 DAY Resulted 10/22/17 09:25 Blood Peripheral Anaerobic Blood Culture - Preliminary NO GROWTH IN 1 DAY Resulted 10/22/17 09:52 Stool Stool Cryptosporidium Exam Pending Received 10/22/17 09:52 Stool Stool Stool Pus (SALOMON) Pending Received 10/22/17 09:52 Stool Stool Giardia Antigen (SALOMON) Pending Received 10/22/17 09:52 Stool Stool Pending Received Imaging Studies Last 24 hours Impressions Upper Extremity Ultrasound 10/23/17 0000 Signed Impressions: Service Date/Time: Monday, October 23, 2017 10:29 - CONCLUSION: Normal examination. Luke Conti Jr., MD Administered Medications Medications (Trade) Dose Ordered Sig/Steph Route PRN Reason Start Time Stop Time Status Last Admin Dose Admin Sodium Chloride 1,000 ml @ 125 mls/hr Q8H IV 10/22/17 11:39 10/23/17 03:14 Sodium Chloride (NS Flush) 2 ml BID IV FLUSH 10/22/17 21:00 10/23/17 08:38 Piperacillin Sod/ Tazobactam Sod 50 ml @ 100 mls/hr Q6H IV 10/22/17 15:00 10/23/17 08:38 Lisinopril (Prinivil) 20 mg DAILY PO 10/23/17 09:00 10/23/17 08:38 Ondansetron HCl (Zofran Inj) 4 mg Q8HR PRN IV PUSH NAUSEA OR VOMITING 10/22/17 12:45 10/23/17 08:39 Enoxaparin Sodium (Lovenox Inj) 90 mg Q12H SQ 10/22/17 15:00 10/23/17 03:14 Pantoprazole Sodium (Protonix) 40 mg Q12HR PO 10/22/17 14:15 10/23/17 08:37 Morphine Sulfate (Morphine Inj) 2 mg Q3H PRN IM PAIN SCALE 8 TO 10 10/22/17 20:30 10/23/17 03:19 Objective Remarks GENERAL: Middle aged female lying in bed in nad. SKIN: Warm and dry. HEAD: Normocephalic. EYES: No injection or drainage. NECK: Supple, trachea midline. CARDIOVASCULAR: Regular rate and rhythm RESPIRATORY: Breath sounds equal bilaterally. No accessory muscle use. GASTROINTESTINAL: Abdomen mildly bloated. soft. no tenderness to palpation. EXTREMITIES: No cyanosis NEUROLOGICAL: awake and alert, normal speech. moving all extremities. Assessment/Plan Problem List: (1) Portal vein thrombosis ICD Codes: I81 - Portal vein thrombosis Status: Acute Plan: continue Lovenox --CT ab and pelvis showed nonocclusive thrombus involving the portal vein. No wall thickening involving the bowel structures to suggest either congestion or acute inflammatory process. New splenomegaly with a diffusely heterogeneous spleen concerning for an infiltrating process. The splenic vein is patent. Prior cholecystectomy. --patient will need 6 months of anticoagulation therapy. --Will start off while inpatient with Lovenox therapy. Will continue to closely monitor symptoms. --start on apixaban outpatient once her acute issues have resolved. +splenomegaly with leukocytosis and elevated hemoglobin. ?d/t hemoconcentration --check flow cytometry to rule out PNH and to evaluate for other inherited thrombophilia. Assessment 51y/o female admitted with abdominal pain. hematology consulted for Portal vein thrombosis. 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 continue Lovenox 2. monitor CBC 3. check flow cytometry 4. face sheet faxed to new patient referrals for follow up on discharge Attending Statement The exam, history, and the medical decision-making described in the above note were completed with the assistance of the mid-level provider. I reviewed and agree with the findings presented. I attest that I had a [id number] encounter with the patient on the same day, and personally performed and documented my assessment and findings in the medical record. 51 yoF with history of gallstone pancreatitis, s/p cholecystectomy admitted with abdominal symptoms and found to have a portal vein thrombosis. She has no underlying infection, malignancy, autoimmune disease, history of trauma. She does have CBC and splenomegaly finidngs suspicious for myeproliferative neoplasm. Will check flow cytometry. Will also check hypercoaguable workup to include APLS, F[facility] leiden PT gene mutation. Will continue to follow. Continue on lovenox while inpatient. Honey Padron Oct 23, 2017 12:00 Linda Meyer MD Oct 23, 2017 19:17
[2017-10-23 12:22] LABS: AUTOMATED NEUTROPHIL # 15.5 TH/MM3 (1.8-7.7); BASOPHIL # 0.2 TH/MM3 (0-0.2); BASOPHIL % 1.2 % (0.0-2.0); EOSINOPHIL # 0.7 TH/MM3 (0-0.4); EOSINOPHIL % 3.8 % (0.0-4.0); HEMATOCRIT 48.5 % (35.0-46.0); HEMO FLAGS DIFF FINAL; LYMPHOCYTE # 1.5 TH/MM3 (1.0-4.8); MEAN CELL VOLUME 72.6 FL (80.0-100.0); MEAN CORPUSCULAR HEMOGLOBIN 22.3 PG (27.0-34.0); MEAN CORPUSCULAR HGB CONC 30.6 % (32.0-36.0); MONO % 4.7 % (0.0-8.0); NEUT % 82.3 % (16.0-70.0); PLATELET COUNT 279 TH/MM3 (150-450); RED BLOOD COUNT 6.67 MIL/MM3 (4.00-5.30); RED CELL DISTRIBUTION WIDTH 19.1 % (11.6-17.2); WHITE BLOOD COUNT 18.9 TH/MM3 (4.0-11.0)
[2017-10-23 12:37] LABS: ALKALINE PHOSPHATASE 120 U/L (45-117); ALT (GPT) 12 U/L (10-53); ANION GAP 7 MEQ/L (5-15); AST (GOT) 13 U/L (15-37); BICARBONATE 22.6 MEQ/L (21.0-32.0); BLOOD UREA NITROGEN 8 MG/DL (7-18); CHLORIDE 110 MEQ/L (98-107); GLOMERULAR FILTRATION RATE 101 ML/MIN (>89); POTASSIUM 3.6 MEQ/L (3.5-5.1); SODIUM (NA) 140 MEQ/L (136-145); TOTAL BILIRUBIN ADULT 0.7 MG/DL (0.2-1.0)
[2017-10-23 12:55] VITALS: BP 131/70; PULSE 74; RESP 20; TEMP 97.9; O2SAT 95
--- NOTE | 2017-10-23 14:12 | HHI.FPPN ---
Subjective Remarks Patient seen and examined this morning. No acute events overnight. Patient has complaint of diarrhea this morning. Has had 3 loose stools. Denies any blood in her stools or black stools. Also complains of left arm swelling that started overnight, she does mention that the IV was initially on that arm and then switch to her right arm. Otherwise, reports no chest pain, abdominal pain, shortness of breath. (Jesus Alberto Au MD, R2) Objective Vitals Vital Signs Date Time Temp Pulse Resp B/P (MAP) Pulse Ox O2 Delivery O2 Flow Rate FiO2 10/23/17 12:55 97.9 74 20 131/70 (90) 95 10/23/17 04:20 98.2 78 18 139/67 (91) 96 10/23/17 03:24 16 10/23/17 00:42 98.6 79 20 168/76 (106) 94 10/22/17 21:19 98.0 81 18 140/68 (92) 93 10/22/17 17:28 99.3 85 18 136/85 (102) 95 10/22/17 14:45 84 I/O 10/22/17 10/22/17 10/22/17 10/23/17 10/23/17 10/23/17 07:00 15:00 23:00 07:00 15:00 23:00 Intake Total 1600 ml 460 ml 900 ml Balance 1600 ml 460 ml 900 ml Intake Oral 500 ml 360 ml IV Total 1100 ml 100 ml 900 ml # Voids 1 4 # Bowel Movements 1 (Jesus Alberto Au MD, R2) Result Diagram: 10/23/17 1125 10/23/17 1125 Objective Remarks GENERAL: No acute distress, sitting up in bed CARDIOVASCULAR: Regular rate and rhythm. RESPIRATORY: No accessory muscle use. Clear to auscultation. Breath sounds equal bilaterally. GASTROINTESTINAL: Abdomen soft, non-tender, nondistended. MUSCULOSKELETAL: Lower Extremities without clubbing, cyanosis, or edema. LUE with swelling from elbow distally. Not warm to touch or painful. NEUROLOGICAL: Awake and alert. No obvious cranial nerve deficits. Normal speech. PSYCHIATRIC: Appropriate mood and affect; insight and judgment normal. (Jesus Alberto Au MD, R2) A/P Assessment and Plan Mrs. Butler is a 51 yo female with history of breast cancer admitted for portal vein thrombosis with heme/onc workup and GI workup. Discharge Planning Unclear at this time (eJsus Alberto Au MD, R2) Attending Attestation THIS CASE WAS DISCUSSED WITH THE RESIDENT PHYSICIANS. I HAVE REVIEWED THE RECORD , PATIENT SEEN AND EXAMINED< AND AGREE WITH THE ABOVE NOTE AND PLAN OF CARE WAS DISCUSSED. I HAVE AUTHORIZED THE ORDERS (Todd Law MD) Problem List: (1) Portal vein thrombosis ICD Codes: I81 - Portal vein thrombosis Status: Acute Plan: Hematology consulted (polycythemia, leukocytosis with splenic infiltrate ; questions regarding diagnostic work-up and anticoagulation management) -Continue Lovenox 85mg BID, start apixaban outpatient -Will need 6 months of anticoagulation -Flow cytometry pending Impression: Unclear etiology. Patient with prior cholecystectomy after gallstone pancreatitis but no knowledge of cirrhosis/hepatic disease. Alcohol intake 3-4 drinks/week. CT A/P 1218- Nonocclusive thrombus involving portal vein; no wall thickening involving the bowel structures to suggest venous congestion or acute inflammatory process. New splenomegaly with a diffusely heterogenous spleen concerning for an infiltrating process. Splenic vein patent not suspected related to venous congestion. Prior cholecystectomy (2) Splenomegaly ICD Codes: R16.1 - Splenomegaly, not elsewhere classified Status: Acute Plan: -Hematology consulted -Will continue Zosyn started in ED for coexistent leukocytosis and tachycardia on admission Impression: Unclear etiology CT A/P 12/18- Nonocclusive thrombus involving portal vein; no wall thickening involving the bowel structures to suggest venous congestion or acute inflammatory process. New splenomegaly with a diffusely heterogenous spleen concerning for an infiltrating process. Splenic vein patent not suspected related to venous congestion. Prior cholecystectomy (3) Vomiting and diarrhea ICD Codes: R11.10 - Vomiting, unspecified; R19.7 - Diarrhea, unspecified Status: Acute Plan: Symptomatic control; may be due to antibiotics. Continue to monitor GGT and AFP negative -GI consulted-appreciate recs -CLD -Stool studies pending -Zofran 4mg IV PRN for nausea -Protonix (4) Leukocytosis ICD Codes: D72.829 - Elevated white blood cell count, unspecified Plan: -Will continue Zosyn started in ED in case of infectious etiology -May de-escalate antibiotics if stable; vital signs stable, leukocytosis improving. -Blood cultures pending (5) Elevated hemoglobin ICD Codes: D58.2 - Other hemoglobinopathies Status: Acute Plan: Improving, may be hemoconcentrated -Continue to monitor -Continue IV NS at 125ml/hr -Will trend CBC -Hematology consulted (6) HTN (hypertension) ICD Codes: I10 - Essential (primary) hypertension Status: Chronic Plan: Impression: PMH HTN on Lisinopril 20mg daily -Will continue Lisinopril 20mg daily -Will have Vasotec 1.25mg IV PRN when not able to tolerate oral intake (7) Fluids, Electrolyes, and Nutrition Status: Acute Plan: Fluids: Continue maintenance NS at 125ml/hr Electrolytes: wnl on admission; will monitor and replete as needed Nutrition: Will advance diet as tolerated DVT ppx: therapeutic lovenox (Jesus Alberto Au MD, R2) Problem Qualifiers (1) Leukocytosis: Qualified Codes: D72.829 - Elevated white blood cell count, unspecified (2) HTN (hypertension): Qualified Codes: I10 - Essential (primary) hypertension Jesus Alberto Au MD, R2 Oct 23, 2017 14:12 Todd Law MD Oct 24, 2017 10:27
[2017-10-23 17:49] VITALS: BP 138/66; PULSE 76; RESP 20; TEMP 99.2; O2SAT 94
[2017-10-23 20:30] VITALS: BP 128/65; PULSE 70; RESP 18; TEMP 98.3; O2SAT 95
[2017-10-24 00:19] VITALS: BP 133/68; PULSE 76; RESP 18; TEMP 98.5; O2SAT 95
[2017-10-24 04:26] VITALS: BP 134/69; PULSE 78; RESP 18; TEMP 98.4; O2SAT 94
[2017-10-24] MEDS: SODIUM CHLOR 0.9% 1000 ML INJ 1,000 ML IV SCH ×3 (04:26→22:38)
[2017-10-24] MEDS: ENOXAPARIN SODIUM 100 MG/ML SYRINGE SQ SCH ×2 (04:27→15:37)
[2017-10-24] MEDS: PIPERACIL-TAZO 3.375 GM PREMIX 50 ML IV SCH ×4 (04:29→22:37)
[2017-10-24 08:07] VITALS: BP 132/77; PULSE 84; RESP 18; TEMP 99.3; O2SAT 94
[2017-10-24] MEDS: PANTOPRAZOLE SOD 40 MG DELAYED RELEASE TAB PO SCH ×2 (08:28→22:37)
[2017-10-24] MEDS: LISINOPRIL 20 MG TAB PO SCH (08:29)
[2017-10-24] MEDS: SODIUM CHLORIDE 0.9% FLUSH 10 ML FLUSH IV FLUSH SCH ×2 (08:29→22:38)
[2017-10-24] MEDS ORDERED: PEG (High)/E-LYTE SOLN 4000 ML BTL PO ONE (09:00)
--- NOTE | 2017-10-24 09:24 | HHI.GIFU ---
Subjective Remarks increased fatigue and diarrhea this am Diarrhea uncontrolled abd. bloating epigastric pain mild 99.3 (Joann Patricio) Objective Vitals I&O Vital Signs Date Time Temp Pulse Resp B/P (MAP) Pulse Ox O2 Delivery O2 Flow Rate FiO2 10/24/17 08:07 99.3 84 18 132/77 (95) 94 10/24/17 04:26 98.4 78 18 134/69 (90) 94 10/24/17 00:19 98.5 76 18 133/68 (89) 95 10/23/17 20:30 98.3 70 18 128/65 (86) 95 10/23/17 17:49 99.2 76 20 138/66 (90) 94 10/23/17 12:55 97.9 74 20 131/70 (90) 95 I/O 10/23/17 10/23/17 10/23/17 10/24/17 10/24/17 10/24/17 07:00 15:00 23:00 07:00 15:00 23:00 Intake Total 900 ml 100 ml 1800 ml Output Total 1100 ml Balance 900 ml 100 ml 700 ml Intake Oral 850 ml IV Total 900 ml 100 ml 950 ml Output Urine Total 1100 ml # Voids 4 # Bowel Movements 1 Laboratory Laboratory Tests Test 10/23/17 11:25 10/23/17 21:35 White Blood Count 18.9 Red Blood Count 6.67 Hemoglobin 14.8 Hematocrit 48.5 Mean Corpuscular Volume 72.6 Mean Corpuscular Hemoglobin 22.3 Mean Corpuscular Hemoglobin Concent 30.6 Red Cell Distribution Width 19.1 Platelet Count 279 Mean Platelet Volume 8.7 Neutrophils (%) (Auto) 82.3 Lymphocytes (%) (Auto) 8.0 Monocytes (%) (Auto) 4.7 Eosinophils (%) (Auto) 3.8 Basophils (%) (Auto) 1.2 Neutrophils # (Auto) 15.5 Lymphocytes # (Auto) 1.5 Monocytes # (Auto) 0.9 Eosinophils # (Auto) 0.7 Basophils # (Auto) 0.2 CBC Comment DIFF FINAL Differential Comment Blood Urea Nitrogen 8 Creatinine 0.62 Random Glucose 84 Total Protein 5.8 Albumin 2.7 Calcium Level 8.0 Alkaline Phosphatase 120 Aspartate Amino Transf (AST/SGOT) 13 Alanine Aminotransferase (ALT/SGPT) 12 Total Bilirubin 0.7 Sodium Level 140 Potassium Level 3.6 Chloride Level 110 Carbon Dioxide Level 22.6 Anion Gap 7 Estimat Glomerular Filtration Rate 101 Date/Time Source Procedure Growth Status 10/22/17 09:25 Blood Peripheral Aerobic Blood Culture - Preliminary NO GROWTH IN 1 DAY Resulted 10/22/17 09:25 Blood Peripheral Anaerobic Blood Culture - Preliminary NO GROWTH IN 1 DAY Resulted 10/22/17 09:52 Stool Stool Cryptosporidium Exam Pending Resulted 10/22/17 09:52 Stool Stool Stool Pus (SALOMON) - Final RARE WBC Resulted 10/22/17 09:52 Stool Stool Giardia Antigen (SALOMON) Pending Resulted Imaging Last Impressions Upper Extremity Ultrasound 10/23/17 0000 Signed Impressions: Service Date/Time: Monday, October 23, 2017 10:29 - CONCLUSION: Normal examination. Luke Conti Jr., MD Abdomen/Pelvis CT 10/22/17 0751 Signed Impressions: Service Date/Time: Sunday, October 22, 2017 09:06 - CONCLUSION: 1. Nonocclusive thrombus involving the portal vein. 2. No wall thickening involving the bowel structures to suggest venous congestion or acute inflammatory process. 3. New splenomegaly with a diffusely heterogeneous spleen concerning for an infiltrating process. The splenic vein is patent and therefore I do not feel this relates to venous congestion. 4. Prior cholecystectomy. Luke Conti Jr., MD Chest X-Ray 10/22/17 0000 Signed Impressions: Service Date/Time: Sunday, October 22, 2017 12:06 - CONCLUSION: No acute cardiopulmonary process. Marcos Galeana MD Physical Exam HEENT: Pupils round and reactive to light; normocephalic; atraumatic; no jaundice. NECK: Neck is supple, no JVD, no lymphadenopathy. CHEST: Chest is clear to auscultation and percussion. CARDIAC: Regular rate and rhythm with no murmur gallop or rubs. ABDOMEN: Soft, diarrhea, mild cramping; no hepatosplenomegaly; bowel sounds active, EXTREMITIES: No clubbing, cyanosis, or edema LE, edema left upper extremity SKIN: Normal; no rash; no jaundice. [employer]: No focal deficits; alert and oriented times three. mild anxiety over condition (Joann Patricio) Assessment and Plan Assessment: (1) Thrombosis, portal vein ICD Codes: I81 - Portal vein thrombosis (2) History of pancreatitis ICD Codes: Z87.19 - Personal history of other diseases of the digestive system (3) Abdominal pain ICD Codes: R10.9 - Unspecified abdominal pain (4) Portal vein thrombosis ICD Codes: I81 - Portal vein thrombosis Status: Acute (5) Epigastric pain ICD Codes: R10.13 - Epigastric pain; R19.7 - Diarrhea, unspecified Status: Acute (6) Vomiting and diarrhea ICD Codes: R11.10 - Vomiting, unspecified; R19.7 - Diarrhea, unspecified Status: Acute (7) Elevated hemoglobin ICD Codes: D58.2 - Other hemoglobinopathies Plan Abdominal pain, epigastric and. Umbilical possible due to portal vein thrombosis, patient also has new splenomegaly, Hemotology consult done. Plam to continue Lovenox. CT of the abdomen and pelvis done on 10-22, shows nonocclusive thrombus involving the portal vein. There is no wall thickening involving the bowel structures. There is no use splenomegaly with diffusely heterogenous spleen concerning for a infiltrating process. The splenic vein is patent, prior cholecystectomy EtOH usage, symptoms are possibly secondary to her extended abuse GERD, possible with her epigastric pain, and generalized abd. pain. which is worse this am. Stool incontinent. Stool studies, negative so far, or pending, Plan; diet clear liquids today Consents for EGD and Colonoscopy in am NPO at Midnight Prep Go lytely Medications for nausea C-Diff stool check ordered. Added Flagyl IV Added PPI by mouth Antibiotics per attending Case discussed with , further testing will be based on findings and symptoms Seen on his behalf (Joann Patricio) Physician Comments Agree with thw above assessment and plan, will proceed with EGD/Colonoscopy. (Alexia Gama MD) Joann Patricio Oct 24, 2017 09:24 Alexia Gama MD Oct 25, 2017 06:08
--- NOTE | 2017-10-24 10:08 | HHI.FPPN ---
Subjective Remarks Patient seen and examined this morning. She states she continues to have mild abdominal pain and diarrhea. She reports she had 3 episodes of diarrhea last night, loose, brown, no blood observed, no black specks. Continues to drink thin liquids. She states she believes the swelling her left arm has improved today. No other nausea, vomiting, fever, chills, chest pain, change in urinary habits. No other complaints today. Objective Vitals Vital Signs Date Time Temp Pulse Resp B/P (MAP) Pulse Ox O2 Delivery O2 Flow Rate FiO2 10/24/17 08:07 99.3 84 18 132/77 (95) 94 10/24/17 04:26 98.4 78 18 134/69 (90) 94 10/24/17 00:19 98.5 76 18 133/68 (89) 95 10/23/17 20:30 98.3 70 18 128/65 (86) 95 10/23/17 17:49 99.2 76 20 138/66 (90) 94 10/23/17 12:55 97.9 74 20 131/70 (90) 95 I/O 10/23/17 10/23/17 10/23/17 10/24/17 10/24/17 10/24/17 07:00 15:00 23:00 07:00 15:00 23:00 Intake Total 900 ml 100 ml 1800 ml Output Total 1100 ml Balance 900 ml 100 ml 700 ml Intake Oral 850 ml IV Total 900 ml 100 ml 950 ml Output Urine Total 1100 ml # Voids 4 # Bowel Movements 1 Result Diagram: 10/23/17 1125 10/23/17 1125 Objective Remarks GENERAL: No acute distress, sitting up in bed CARDIOVASCULAR: Regular rate and rhythm. RESPIRATORY: No accessory muscle use. Clear to auscultation. Breath sounds equal bilaterally. GASTROINTESTINAL: Abdomen soft, non-tender, nondistended. MUSCULOSKELETAL: Lower Extremities without clubbing, cyanosis, or edema. LUE swelling improved. Not warm to touch or painful. NEUROLOGICAL: Awake and alert. No obvious cranial nerve deficits. Normal speech. PSYCHIATRIC: Appropriate mood and affect; insight and judgment normal. A/P Assessment and Plan Mrs. Butler is a 51 yo female with history of breast cancer admitted for portal vein thrombosis with heme/onc workup and GI workup. Discharge Planning Unclear at this time Problem List: (1) Portal vein thrombosis ICD Codes: I81 - Portal vein thrombosis Status: Acute Plan: Hematology consulted (polycythemia, leukocytosis with splenic infiltrate ; questions regarding diagnostic work-up and anticoagulation management) -Continue Lovenox 85mg BID, start apixaban outpatient -Will need 6 months of anticoagulation -Flow cytometry pending Impression: Unclear etiology. Patient with prior cholecystectomy after gallstone pancreatitis but no knowledge of cirrhosis/hepatic disease. Alcohol intake 3-4 drinks/week. CT A/P 10/22- Nonocclusive thrombus involving portal vein; no wall thickening involving the bowel structures to suggest venous congestion or acute inflammatory process. New splenomegaly with a diffusely heterogenous spleen concerning for an infiltrating process. Splenic vein patent not suspected related to venous congestion. Prior cholecystectomy (2) Splenomegaly ICD Codes: R16.1 - Splenomegaly, not elsewhere classified Status: Acute Plan: -Hematology consulted -Will continue Zosyn started in ED for coexistent leukocytosis and tachycardia on admission -Flagyl added 10/[address]: Un[address] etiology CT A/P 10/22- Nonocclusive thrombus involving portal vein; no wall thickening involving the bowel structures to suggest venous congestion or acute inflammatory process. New splenomegaly with a diffusely heterogenous spleen concerning for an infiltrating process. Splenic vein patent not suspected related to venous congestion. Prior cholecystectomy (3) Vomiting and diarrhea ICD Codes: R11.10 - Vomiting, unspecified; R19.7 - Diarrhea, unspecified Status: Acute Plan: Symptomatic control; may be due to antibiotics. Continue to monitor GGT and AFP negative -GI consulted-appreciate recs -Colonoscopy 10/25 -CLD -Stool studies pending -Zofran 4mg IV PRN for nausea -Protonix (4) Leukocytosis ICD Codes: D72.829 - Elevated white blood cell count, unspecified Plan: -Will continue Zosyn started in ED in case of infectious etiology -May de-escalate antibiotics if stable; vital signs stable, leukocytosis improving. -Blood cultures pending (5) Elevated hemoglobin ICD Codes: D58.2 - Other hemoglobinopathies Status: Acute Plan: Improving, may be hemoconcentrated -Continue to monitor -Continue IV NS at 125ml/hr -Will trend CBC -Hematology consulted (6) HTN (hypertension) ICD Codes: I10 - Essential (primary) hypertension Status: Chronic Plan: Impression: PMH HTN on Lisinopril 20mg daily -Will continue Lisinopril 20mg daily -Will have Vasotec 1.25mg IV PRN when not able to tolerate oral intake (7) Fluids, Electrolyes, and Nutrition Status: Acute Plan: Fluids: Continue maintenance NS at 125ml/hr Electrolytes: wnl on admission; will monitor and replete as needed Nutrition: Will advance diet as tolerated DVT ppx: therapeutic lovenox Problem Qualifiers (1) Leukocytosis: Qualified Codes: D72.829 - Elevated white blood cell count, unspecified (2) HTN (hypertension): Qualified Codes: I10 - Essential (primary) hypertension Thomas Pratt MD R1 Oct 24, 2017 10:07
[2017-10-24 10:15] LABS: AUTOMATED NEUTROPHIL # 16.6 TH/MM3 (1.8-7.7); BASOPHIL # 0.3 TH/MM3 (0-0.2); BASOPHIL % 1.5 % (0.0-2.0); EOSINOPHIL # 0.6 TH/MM3 (0-0.4); HEMATOCRIT 46.8 % (35.0-46.0); HEMO FLAGS DIFF FINAL; LYMPH % 8.1 % (9.0-44.0); LYMPHOCYTE # 1.6 TH/MM3 (1.0-4.8); MEAN CORPUSCULAR HEMOGLOBIN 22.1 PG (27.0-34.0); MEAN CORPUSCULAR HGB CONC 31.1 % (32.0-36.0); MONO % 4.6 % (0.0-8.0); NEUT % 82.8 % (16.0-70.0); PLATELET COUNT 255 TH/MM3 (150-450); RED BLOOD COUNT 6.59 MIL/MM3 (4.00-5.30); RED CELL DISTRIBUTION WIDTH 18.8 % (11.6-17.2)
[2017-10-24] MEDS: metroNIDAZOLE 500 MG INJ 100 ML IV SCH ×2 (10:15→17:27)
[2017-10-24 10:43] LABS: ANION GAP 10 MEQ/L (5-15); AST (GOT) 11 U/L (15-37); BICARBONATE 23.4 MEQ/L (21.0-32.0); BLOOD UREA NITROGEN 6 MG/DL (7-18); CHLORIDE 108 MEQ/L (98-107); GLOMERULAR FILTRATION RATE 99 ML/MIN (>89); POTASSIUM 3.3 MEQ/L (3.5-5.1); SODIUM (NA) 141 MEQ/L (136-145)
[2017-10-24 10:44] LABS: ALT (GPT) 12 U/L (10-53)
[2017-10-24 10:47] LABS: ALKALINE PHOSPHATASE 117 U/L (45-117); TOTAL BILIRUBIN ADULT 0.9 MG/DL (0.2-1.0)
[2017-10-24 11:43] VITALS: BP 132/82; PULSE 73; RESP 20; TEMP 100.3; O2SAT 94
--- NOTE | 2017-10-24 12:23 | PD.ONC.PN ---
Subjective Subjective Remarks Tmax 100.3 this afternoon Had some diarrhea last night but none this morning Getting colonoscopy in a.m. Still feels bloated but having less abdominal pain No bleeding on the Lovenox Objective Data Date Time Temp Pulse Resp B/P (MAP) Pulse Ox O2 Delivery O2 Flow Rate FiO2 10/24/17 11:43 100.3 73 20 132/82 (99) 94 10/24/17 08:07 99.3 84 18 132/77 (95) 94 10/24/17 04:26 98.4 78 18 134/69 (90) 94 10/24/17 00:19 98.5 76 18 133/68 (89) 95 10/23/17 20:30 98.3 70 18 128/65 (86) 95 10/23/17 17:49 99.2 76 20 138/66 (90) 94 10/23/17 12:55 97.9 74 20 131/70 (90) 95 Result Diagram: 10/24/17 0926 10/24/17 09 Laboratory Results Laboratory Tests Test 10/23/17 21:35 10/24/17 09:26 White Blood Count 20.0 TH/MM3 Red Blood Count 6.59 MIL/MM3 Hemoglobin 14.6 GM/DL Hematocrit 46.8 % Mean Corpuscular Volume 71.0 FL Mean Corpuscular Hemoglobin 22.1 PG Mean Corpuscular Hemoglobin Concent 31.1 % Red Cell Distribution Width 18.8 % Platelet Count 255 TH/MM3 Mean Platelet Volume 8.4 FL Neutrophils (%) (Auto) 82.8 % Lymphocytes (%) (Auto) 8.1 % Monocytes (%) (Auto) 4.6 % Eosinophils (%) (Auto) 3.0 % Basophils (%) (Auto) 1.5 % Neutrophils # (Auto) 16.6 TH/MM3 Lymphocytes # (Auto) 1.6 TH/MM3 Monocytes # (Auto) 0.9 TH/MM3 Eosinophils # (Auto) 0.6 TH/MM3 Basophils # (Auto) 0.3 TH/MM3 CBC Comment DIFF FINAL Differential Comment Blood Urea Nitrogen 6 MG/DL Creatinine 0.63 MG/DL Random Glucose 76 MG/DL Total Protein 6.0 GM/DL Albumin 2.7 GM/DL Calcium Level 7.8 MG/DL Alkaline Phosphatase 117 U/L Aspartate Amino Transf (AST/SGOT) 11 U/L Alanine Aminotransferase (ALT/SGPT) 12 U/L Total Bilirubin 0.9 MG/DL Sodium Level 141 MEQ/L Potassium Level 3.3 MEQ/L Chloride Level 108 MEQ/L Carbon Dioxide Level 23.4 MEQ/L Anion Gap 10 MEQ/L Estimat Glomerular Filtration Rate 99 ML/MIN Culture Results Microbiology Date/Time Source Procedure Growth Status 10/22/17 09:25 Blood Peripheral Aerobic Blood Culture - Preliminary NO GROWTH IN 2 DAYS Resulted 10/22/17 09:25 Blood Peripheral Anaerobic Blood Culture - Preliminary NO GROWTH IN 2 DAYS Resulted 10/22/17 09:25 Blood Peripheral Aerobic Blood Culture - Preliminary NO GROWTH IN 2 DAYS Resulted 10/22/17 09:25 Blood Peripheral Anaerobic Blood Culture - Preliminary NO GROWTH IN 2 DAYS Resulted 10/22/17 09:52 Stool Stool Cryptosporidium Exam Pending Resulted 10/22/17 09:52 Stool Stool Stool Pus (SALOMON) - Final RARE WBC Resulted 10/22/17 09:52 Stool Stool Giardia Antigen (SALOMON) Pending Resulted 10/22/17 09:52 Stool Stool Pending Received Administered Medications Medications (Trade) Dose Ordered Sig/Steph Route PRN Reason Start Time Stop Time Status Last Admin Dose Admin Sodium Chloride 1,000 ml @ 125 mls/hr Q8H IV 10/22/17 11:39 10/24/17 04:26 Sodium Chloride (NS Flush) 2 ml BID IV FLUSH 10/22/17 21:00 10/24/17 08:29 Piperacillin Sod/ Tazobactam Sod 50 ml @ 100 mls/hr Q6H IV 10/22/17 15:00 10/24/17 08:29 Lisinopril (Prinivil) 20 mg DAILY PO 10/23/17 09:00 10/24/17 08:29 Ondansetron HCl (Zofran Inj) 4 mg Q8HR PRN IV PUSH NAUSEA OR VOMITING 10/22/17 12:45 10/23/17 08:39 Enoxaparin Sodium (Lovenox Inj) 90 mg Q12H SQ 10/22/17 15:00 10/24/17 04:27 Pantoprazole Sodium (Protonix) 40 mg Q12HR PO 10/22/17 14:15 10/24/17 08:28 Morphine Sulfate (Morphine Inj) 2 mg Q3H PRN IM PAIN SCALE 8 TO 10 10/22/17 20:30 12/19/17 17:16 Metronidazole 100 ml @ 100 mls/hr Q8H IV 10/24/17 10:00 10/24/17 10:15 Objective Remarks GENERAL: Middle aged female lying in bed in no acute distress SKIN: Warm and dry. HEAD: Normocephalic. EYES: No injection or drainage. NECK: Supple, trachea midline. CARDIOVASCULAR: Regular rate and rhythm RESPIRATORY: Breath sounds equal bilaterally. No accessory muscle use. GASTROINTESTINAL: Abdomen mildly bloated. Nontender to palpation. EXTREMITIES: No cyanosis. No edema. NEUROLOGICAL: No obvious focal deficit. Moving all extremities. Assessment/Plan Problem List: (1) Portal vein thrombosis ICD Codes: I81 - Portal vein thrombosis Status: Acute Plan: continue Lovenox --CT ab and pelvis showed nonocclusive thrombus involving the portal vein. No wall thickening involving the bowel structures to suggest either congestion or acute inflammatory process. New splenomegaly with a diffusely heterogeneous spleen concerning for an infiltrating process. The splenic vein is patent. Prior cholecystectomy. --patient will need 6 months of anticoagulation therapy. --Will start off while inpatient with Lovenox therapy. Will continue to closely monitor symptoms. --start on apixaban outpatient once her acute issues have resolved. +splenomegaly with leukocytosis and elevated hemoglobin. ?d/t hemoconcentration --check flow cytometry to rule out PNH and to evaluate for other inherited thrombophilia. Assessment 51y/o female admitted with abdominal pain. hematology consulted for Portal vein thrombosis. 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 Await flow cytometry, JAK2 and BCR ABL 2. Monitor CBC 3. Continue Lovenox Attending Statement The exam, history, and the medical decision-making described in the above note were completed with the assistance of the mid-level provider. I reviewed and agree with the findings presented. I attest that I had a [id number] encounter with the patient on the same day, and personally performed and documented my assessment and findings in the medical record. 51 yoF admitted with PV thrombosis and finding suggestive of underlying lymphoma/ myeloproliferative neoplasm. On Lovenox. Hypercoagable work up to include antiphospholipid antibody, factor V leiden and PT gene mutation pending. Will not perform protein C, protein S or AT III at this time due to acute clot. Will continue to follow. Tara Marino Oct 24, 2017 12:23 Linda Meyer MD Oct 25, 2017 00:40
[2017-10-24 15:26] VITALS: BP 117/62; PULSE 68; RESP 18; TEMP 98.3; O2SAT 94
[2017-10-24 22:53] VITALS: BP 159/73; PULSE 67; RESP 18; TEMP 97.9; O2SAT 97
[2017-10-25] VITALS (10 sets, daily range): BP systolic 124–157; BP diastolic 55–75; PULSE 57–93; RESP 18; TEMP 97.3–98.4; O2SAT 96–97
[2017-10-25] MEDS: metroNIDAZOLE 500 MG INJ 100 ML IV SCH ×3 (01:41→17:46)
[2017-10-25] MEDS: ENOXAPARIN SODIUM 100 MG/ML SYRINGE SQ SCH ×2 (03:00→16:30)
[2017-10-25] MEDS ORDERED: INSULIN HUMAN REGULAR 1,000 UNITS/10 ML VIAL SQ PRN (03:15)
[2017-10-25] MEDS ORDERED: LACTATED RINGER'S 1000 ML IV PRN (03:15)
[2017-10-25] MEDS ORDERED: POVIDONE IODINE 5% (ANTISEPSIS KIT) 4 APPLICATIONS EACH NARE PRN (03:15)
[2017-10-25] MEDS ORDERED: SODIUM CHLORID 0.9% 500 ML IV PRN (03:15)
[2017-10-25] MEDS ORDERED: CHLORHEXIDINE GLUCONATE 2 % 1 PACK (2 CLOTHS) TOPICAL PRN (03:15)
[2017-10-25] MEDS ORDERED: METOPROLOL TARTRATE 25 MG TAB PO PRN (03:15)
[2017-10-25] MEDS: SODIUM CHLOR 0.9% 1000 ML INJ 1,000 ML IV SCH ×3 (03:36→22:27)
[2017-10-25] MEDS: PIPERACIL-TAZO 3.375 GM PREMIX 50 ML IV SCH ×4 (03:36→22:27)
[2017-10-25] MEDS: POTASSIUM CHLORIDE 20 MEQ CONTROLLED RELEASE TAB PO ONE ×2 (07:30→09:27)
[2017-10-25] MEDS: SODIUM CHLORIDE 0.9% FLUSH 10 ML FLUSH IV FLUSH SCH ×2 (09:00→21:00)
--- NOTE | 2017-10-25 09:22 | HHI.FPPN ---
Subjective Remarks Patient seen and examined this morning. No acute events overnight. She finished the bowel prep for the colonoscopy overnight. She reports her diarrhea has improved and feels better this morning. Has decreased abdominal pain and less bloating. Otherwise, she denies any complaints/concerns. Denies any chest pain, shortness of breath, leg pain. Objective Vitals Vital Signs Date Time Temp Pulse Resp B/P (MAP) Pulse Ox O2 Delivery O2 Flow Rate FiO2 10/25/17 08:35 98.2 66 18 135/60 (85) 96 10/25/17 04:53 71 10/25/17 04:42 97.7 72 18 124/55 (78) 96 10/25/17 01:07 97.3 82 18 125/63 (83) 97 10/24/17 22:53 97.9 67 18 159/73 (101) 97 10/24/17 15:26 98.3 68 18 117/62 (80) 94 10/24/17 11:43 100.3 73 20 132/82 (99) 94 I/O 10/24/17 10/24/17 10/24/17 10/25/17 10/25/17 10/25/17 07:00 15:00 23:00 07:00 15:00 23:00 Intake Total 200 ml 100 ml Balance 200 ml 100 ml IV Total 200 ml 100 ml Result Diagram: 10/24/1792510/24/17925 Objective Remarks GENERAL: No acute distress, lying in bed CARDIOVASCULAR: Regular rate and rhythm. RESPIRATORY: No accessory muscle use. Clear to auscultation. Breath sounds equal bilaterally. GASTROINTESTINAL: Abdomen soft, non-tender, nondistended. BS+ MUSCULOSKELETAL: Lower Extremities without clubbing, cyanosis, or edema. NEUROLOGICAL: Awake and alert. No obvious cranial nerve deficits. Normal speech. PSYCHIATRIC: Appropriate mood and affect; insight and judgment normal. A/P Assessment and Plan Mrs. Butler is a 51 yo female with history of breast cancer admitted for portal vein thrombosis with heme/onc workup and GI workup. Discharge Planning Pending GI workup Problem List: (1) Portal vein thrombosis ICD Codes: I81 - Portal vein thrombosis Status: Acute Plan: Hematology consulted (polycythemia, leukocytosis with splenic infiltrate ; questions regarding diagnostic work-up and anticoagulation management) -Continue Lovenox 85mg BID, start apixaban outpatient -Will need 6 months of anticoagulation -Flow cytometry pending Impression: Unclear etiology. Patient with prior cholecystectomy after gallstone pancreatitis but no knowledge of cirrhosis/hepatic disease. Alcohol intake 3-4 drinks/week. CT A/P 10/22- Nonocclusive thrombus involving portal vein; no wall thickening involving the bowel structures to suggest venous congestion or acute inflammatory process. New splenomegaly with a diffusely heterogenous spleen concerning for an infiltrating process. Splenic vein patent not suspected related to venous congestion. Prior cholecystectomy (2) Norovirus ICD Codes: A08.11 - Acute gastroenteropathy due to [place] agent Status: Acute Plan: Symptomatic control GGT and AFP negative -GI consulted-appreciate recs -Colonoscopy and EGD 10/25 -Await results and recs -CLD -Stool studies pending -Zofran 4mg IV PRN for nausea -Protonix (3) Splenomegaly ICD Codes: R16.1 - Splenomegaly, not elsewhere classified Status: Acute Plan: -Hematology consulted -Will continue Zosyn started in ED for coexistent leukocytosis and tachycardia on admission -Flagyl added 10/24 Impression: Unclear etiology CT A/P 10/22- Nonocclusive thrombus involving portal vein; no wall thickening involving the bowel structures to suggest venous congestion or acute inflammatory process. New splenomegaly with a diffusely heterogenous spleen concerning for an infiltrating process. Splenic vein patent not suspected related to venous congestion. Prior cholecystectomy (4) Leukocytosis ICD Codes: D72.829 - Elevated white blood cell count, unspecified Plan: -Will continue Zosyn started in ED in case of infectious etiology -May de-escalate antibiotics if stable; vital signs stable, leukocytosis improving. -Blood cultures NGTD (5) Elevated hemoglobin ICD Codes: D58.2 - Other hemoglobinopathies Status: Acute Plan: Improving, may be hemoconcentrated -Continue to monitor -Continue IV NS at 125ml/hr -Will trend CBC -Hematology consulted -Possibly polycythemia vera -DELIA mutation labs pending (6) HTN (hypertension) ICD Codes: I10 - Essential (primary) hypertension Status: Chronic Plan: Impression: PMH HTN on Lisinopril 20mg daily -Will continue Lisinopril 20mg daily -Will have Vasotec 1.25mg IV PRN when not able to tolerate oral intake (7) Fluids, Electrolyes, and Nutrition Status: Acute Plan: Fluids: Continue maintenance NS at 125ml/hr Electrolytes: wnl on admission; will monitor and replete as needed Nutrition: Will advance diet as tolerated DVT ppx: therapeutic lovenox Problem Qualifiers (1) Leukocytosis: Qualified Codes: D72.829 - Elevated white blood cell count, unspecified (2) HTN (hypertension): Qualified Codes: I10 - Essential (primary) hypertension Jesus Alberto Au MD, R2 Oct 25, 2017 09:22
[2017-10-25] MEDS: LISINOPRIL 20 MG TAB PO SCH (09:26)
[2017-10-25] MEDS: PANTOPRAZOLE SOD 40 MG DELAYED RELEASE TAB PO SCH ×2 (09:27→22:26)
[2017-10-25 10:50] LABS: HEMATOCRIT 45.5 % (35.0-46.0); MEAN CELL VOLUME 71.6 FL (80.0-100.0); MEAN CORPUSCULAR HEMOGLOBIN 22.6 PG (27.0-34.0); MEAN CORPUSCULAR HGB CONC 31.5 % (32.0-36.0); PLATELET COUNT 289 TH/MM3 (150-450); RED BLOOD COUNT 6.35 MIL/MM3 (4.00-5.30); RED CELL DISTRIBUTION WIDTH 18.9 % (11.6-17.2); REVIEW FLAG FINAL; WHITE BLOOD COUNT 16.4 TH/MM3 (4.0-11.0)
[2017-10-25 11:11] LABS: BICARBONATE 22.5 MEQ/L (21.0-32.0); POTASSIUM 3.4 MEQ/L (3.5-5.1)
[2017-10-25] MEDS ORDERED: ZOLPIDEM TARTRATE 5 MG TAB PO ONE (23:15)
--- NOTE | 2017-10-25 23:50 | PD.ONC.PN ---
Subjective Subjective Remarks Improved diarrhea and improved symptoms. Objective Data Date Time Temp Pulse Resp B/P (MAP) Pulse Ox O2 Delivery O2 Flow Rate FiO2 10/25/17 20:10 98.4 93 18 157/75 (102) 96 10/25/17 16:54 97.9 70 18 128/60 (82) 97 10/25/17 16:15 70 10/25/17 12:30 57 10/25/17 08:35 98.2 66 18 135/60 (85) 96 10/25/17 08:00 81 10/25/17 04:53 71 10/25/17 04:42 97.7 72 18 124/55 (78) 96 10/25/17 01:07 97.3 82 18 125/63 (83) 97 Result Diagram: 10/25/17 1026 10/25/17 1026 Laboratory Results Laboratory Tests Test 10/25/17 10:26 White Blood Count 16.4 TH/MM3 Red Blood Count 6.35 MIL/MM3 Hemoglobin 14.3 GM/DL Hematocrit 45.5 % Mean Corpuscular Volume 71.6 FL Mean Corpuscular Hemoglobin 22.6 PG Mean Corpuscular Hemoglobin Concent 31.5 % Red Cell Distribution Width 18.9 % Platelet Count 289 TH/MM3 Mean Platelet Volume 9.0 FL Blood Urea Nitrogen 5 MG/DL Creatinine 0.62 MG/DL Random Glucose 81 MG/DL Calcium Level 8.4 MG/DL Sodium Level 143 MEQ/L Potassium Level 3.4 MEQ/L Chloride Level 110 MEQ/L Carbon Dioxide Level 22.5 MEQ/L Anion Gap 11 MEQ/L Estimat Glomerular Filtration Rate 101 ML/MIN Administered Medications Medications (Trade) Dose Ordered Sig/Steph Route PRN Reason Start Time Stop Time Status Last Admin Dose Admin Sodium Chloride 1,000 ml @ 125 mls/hr Q8H IV 10/22/17 11:39 10/25/17 22:27 Sodium Chloride (NS Flush) 2 ml BID IV FLUSH 10/22/17 21:00 10/24/17 22:38 Piperacillin Sod/ Tazobactam Sod 50 ml @ 100 mls/hr Q6H IV 10/22/17 15:00 10/25/17 22:27 Lisinopril (Prinivil) 20 mg DAILY PO 10/23/17 09:00 12/21/17 09:26 Ondansetron HCl (Zofran Inj) 4 mg Q8HR PRN IV PUSH NAUSEA OR VOMITING 10/22/17 12:45 10/23/17 08:39 Enoxaparin Sodium (Lovenox Inj) 90 mg Q12H SQ 10/22/17 15:00 10/25/17 16:30 Pantoprazole Sodium (Protonix) 40 mg Q12HR PO 10/22/17 14:15 10/25/17 22:26 Morphine Sulfate (Morphine Inj) 2 mg Q3H PRN IM PAIN SCALE 8 TO 10 10/22/17 20:30 10/23/17 17:16 Metronidazole 100 ml @ 100 mls/hr Q8H IV 10/24/17 10:00 10/25/17 17:46 Objective Remarks GENERAL: Well-nourished, well-developed patient. SKIN: Warm and dry. HEAD: Normocephalic. EYES: No scleral icterus. No injection or drainage. NECK: Supple, trachea midline. No JVD or lymphadenopathy. LYMPHATIC: No adenopathy. CARDIOVASCULAR: Regular rate and rhythm without murmurs. RESPIRATORY: Breath sounds equal bilaterally. No accessory muscle use. GASTROINTESTINAL: Abdomen soft, non-tender, nondistended. EXTREMITIES: No cyanosis, or edema. MUSCULOSKELETAL: Adequate muscle tone. NEUROLOGICAL: No obvious focal deficit. Awake, alert, and oriented x3. PSYCHIATRIC: Appropriate mood and affect; insight and judgment normal. Assessment/Plan Problem List: (1) Portal vein thrombosis ICD Codes: I81 - Portal vein thrombosis Status: Acute Plan: continue Lovenox --CT ab and pelvis showed nonocclusive thrombus involving the portal vein. No wall thickening involving the bowel structures to suggest either congestion or acute inflammatory process. New splenomegaly with a diffusely heterogeneous spleen concerning for an infiltrating process. The splenic vein is patent. Prior cholecystectomy. --patient will need 6 months of anticoagulation therapy. --Will start off while inpatient with Lovenox therapy. Will continue to closely monitor symptoms. --start on apixaban outpatient once her acute issues have resolved. +splenomegaly with leukocytosis and elevated hemoglobin. ?d/t hemoconcentration --check flow cytometry to rule out PNH and to evaluate for other inherited thrombophilia. Assessment 1. Portal vein thrombosis: on Lovenox. Further work up including myeloproliferative work up and hypercoaguable work up pending. 2. Leukocytosis: flow cytometry, BCR/ABL and JAK2 pending. Possibly due to [place] myeloproflierative neoplasm. Plan 1. Await flow cytometry, JAK2 and BCR ABL 2. Monitor CBC 3. Continue Linda Richardson MD Oct 25, 2017 23:50
[2017-10-26] VITALS (7 sets, daily range): BP systolic 133–139; BP diastolic 72–78; PULSE 63–82; RESP 18–20; TEMP 97.7–98.2; O2SAT 95–96
[2017-10-26] MEDS: SODIUM CHLOR 0.9% 1000 ML INJ 1,000 ML IV SCH (02:59)
[2017-10-26] MEDS: metroNIDAZOLE 500 MG INJ 100 ML IV SCH (03:00)
[2017-10-26] MEDS: ENOXAPARIN SODIUM 100 MG/ML SYRINGE SQ SCH ×2 (03:01→15:43)
[2017-10-26] MEDS: PIPERACIL-TAZO 3.375 GM PREMIX 50 ML IV SCH (04:17)
[2017-10-26] MEDS: SODIUM CHLORIDE 0.9% FLUSH 10 ML FLUSH IV FLUSH SCH (09:00)
[2017-10-26] MEDS: PANTOPRAZOLE SOD 40 MG DELAYED RELEASE TAB PO SCH (10:01)
[2017-10-26] MEDS: LISINOPRIL 20 MG TAB PO SCH (10:01)
--- NOTE | 2017-10-26 10:28 | HHI.FPPN ---
Subjective Remarks Patient seen examined this morning. She states she is very frustrated this morning because her EGD and colonoscopy were canceled yesterday. She reports one episode of nonbloody diarrhea last night. She believes her diarrhea is improving. States she currently has appetite, eating well, drinking well. No nausea, vomiting, fever, chills, abdominal pain, chest pain. We spoke at length about the course of [place] virus, how it spreads and how to prevent it. No other complaints today. Objective Vitals Vital Signs Date Time Temp Pulse Resp B/P (MAP) Pulse Ox O2 Delivery O2 Flow Rate FiO2 10/26/17 04:57 98.2 71 18 139/72 (94) 95 10/26/17 03:47 74 10/26/17 01:26 97.7 79 18 135/72 (93) 96 10/26/17 00:20 81 10/25/17 20:32 65 10/25/17 20:10 98.4 93 18 157/75 (102) 96 10/25/17 16:54 97.9 70 18 128/60 (82) 97 10/25/17 16:15 70 10/25/17 12:30 57 I/O 10/25/17 10/25/17 10/25/17 10/26/17 10/26/17 10/26/17 07:00 15:00 23:00 07:00 15:00 23:00 Intake Total 150 ml 250 ml Balance 150 ml 250 ml IV Total 150 ml 250 ml Result Diagram: 10/25/17 1026 10/25/17 1026 Objective Remarks GENERAL: No acute distress, lying in bed CARDIOVASCULAR: Regular rate and rhythm. RESPIRATORY: No accessory muscle use. Clear to auscultation. Breath sounds equal bilaterally. GASTROINTESTINAL: Abdomen soft, non-tender, nondistended. BS+ MUSCULOSKELETAL: Lower Extremities without clubbing, cyanosis, or edema. NEUROLOGICAL: Awake and alert. No obvious cranial nerve deficits. Normal speech. PSYCHIATRIC: Appropriate mood and affect; insight and judgment normal. A/P Assessment and Plan Mrs. Butler is a 51 yo female with history of breast cancer admitted for portal vein thrombosis with heme/onc workup and GI workup. Discharge Planning Pending GI workup Problem List: (1) Portal vein thrombosis ICD Codes: I81 - Portal vein thrombosis Status: Acute Plan: Hematology consulted (polycythemia, leukocytosis with splenic infiltrate ; questions regarding diagnostic work-up and anticoagulation management) -Continue Lovenox 85mg BID, start apixaban outpatient -Will need 6 months of anticoagulation -Flow cytometry pending Impression: Unclear etiology. Patient with prior cholecystectomy after gallstone pancreatitis but no knowledge of cirrhosis/hepatic disease. Alcohol intake 3-4 drinks/week. CT A/P 10/22- Nonocclusive thrombus involving portal vein; no wall thickening involving the bowel structures to suggest venous congestion or acute inflammatory process. New splenomegaly with a diffusely heterogenous spleen concerning for an infiltrating process. Splenic vein patent not suspected related to venous congestion. Prior cholecystectomy (2) Norovirus ICD Codes: A08.11 - Acute gastroenteropathy due to [place] agent Status: Acute Plan: Symptomatic control GGT and AFP negative -GI consulted-appreciate recs -Colonoscopy and EGD 10/25, was cancelled and never completed -Await recommendations -CLD -Stool studies show norovirus -Zofran 4mg IV PRN for nausea -Protonix (3) Splenomegaly ICD Codes: R16.1 - Splenomegaly, not elsewhere classified Status: Acute Plan: -Hematology consulted -Will follow outpatient Impression: Unclear etiology CT A/P 10/22- Nonocclusive thrombus involving portal vein; no wall thickening involving the bowel structures to suggest venous congestion or acute inflammatory process. New splenomegaly with a diffusely heterogenous spleen concerning for an infiltrating process. Splenic vein patent not suspected related to venous congestion. Prior cholecystectomy (4) Leukocytosis ICD Codes: D72.829 - Elevated white blood cell count, unspecified Plan: Likely 2/2 norovirus infection, improving -Blood cultures NGTD (5) Elevated hemoglobin ICD Codes: D58.2 - Other hemoglobinopathies Status: Acute Plan: Improving, may be hemoconcentrated -Continue to monitor -Continue IV NS at 125ml/hr -Will trend CBC -Hematology consulted -Possibly polycythemia vera -DELIA mutation labs pending (6) HTN (hypertension) ICD Codes: I10 - Essential (primary) hypertension Status: Chronic Plan: Impression: PMH HTN on Lisinopril 20mg daily -Will continue Lisinopril 20mg daily -Will have Vasotec 1.25mg IV PRN when not able to tolerate oral intake (7) Fluids, Electrolyes, and Nutrition Status: Acute Plan: Fluids: Continue maintenance NS at 125ml/hr Electrolytes: wnl on admission; will monitor and replete as needed Nutrition: Will advance diet as tolerated DVT ppx: therapeutic lovenox Problem Qualifiers (1) Leukocytosis: Qualified Codes: D72.829 - Elevated white blood cell count, unspecified (2) HTN (hypertension): Qualified Codes: I10 - Essential (primary) hypertension Thomas Pratt MD R1 Oct 26, 2017 10:27
[2017-10-26 12:46] LABS: AUTOMATED NEUTROPHIL # 15.1 TH/MM3 (1.8-7.7); BASOPHIL # 0.2 TH/MM3 (0-0.2); BASOPHIL % 0.9 % (0.0-2.0); EOSINOPHIL # 0.5 TH/MM3 (0-0.4); EOSINOPHIL % 2.9 % (0.0-4.0); HEMATOCRIT 44.8 % (35.0-46.0); HEMO FLAGS DIFF FINAL; LYMPH % 6.4 % (9.0-44.0); LYMPHOCYTE # 1.1 TH/MM3 (1.0-4.8); MEAN CELL VOLUME 71.4 FL (80.0-100.0); MEAN CORPUSCULAR HEMOGLOBIN 22.7 PG (27.0-34.0); MEAN CORPUSCULAR HGB CONC 31.7 % (32.0-36.0); MONO % 4.5 % (0.0-8.0); NEUT % 85.3 % (16.0-70.0); PLATELET COUNT 300 TH/MM3 (150-450); RED BLOOD COUNT 6.27 MIL/MM3 (4.00-5.30); WHITE BLOOD COUNT 17.7 TH/MM3 (4.0-11.0)
--- NOTE | 2017-10-26 12:52 | HHI.GIFU ---
Subjective Remarks walking up in rm. Still has diarrhea, but less occasions. States she is feeling somewhat better today Afebrile (Joann Patricio) Objective Vitals I&O Vital Signs Date Time Temp Pulse Resp B/P (MAP) Pulse Ox O2 Delivery O2 Flow Rate FiO2 10/26/17 12:27 98.2 68 20 133/78 (96) 96 10/26/17 04:57 98.2 71 18 139/72 (94) 95 10/26/17 03:47 74 10/26/17 01:26 97.7 79 18 135/72 (93) 96 10/26/17 00:20 81 10/25/17 20:32 65 10/25/17 20:10 98.4 93 18 157/75 (102) 96 10/25/17 16:54 97.9 70 18 128/60 (82) 97 10/25/17 16:15 70 I/O 10/25/17 10/25/17 10/25/17 10/26/17 10/26/17 10/26/17 07:00 15:00 23:00 07:00 15:00 23:00 Intake Total 150 ml 250 ml Balance 150 ml 250 ml IV Total 150 ml 250 ml Laboratory Laboratory Tests Test 10/26/17 12:26 White Blood Count 17.7 Red Blood Count 6.27 Hemoglobin 14.2 Hematocrit 44.8 Mean Corpuscular Volume 71.4 Mean Corpuscular Hemoglobin 22.7 Mean Corpuscular Hemoglobin Concent 31.7 Red Cell Distribution Width 19.0 Platelet Count 300 Mean Platelet Volume 8.9 Neutrophils (%) (Auto) 85.3 Lymphocytes (%) (Auto) 6.4 Monocytes (%) (Auto) 4.5 Eosinophils (%) (Auto) 2.9 Basophils (%) (Auto) 0.9 Neutrophils # (Auto) 15.1 Lymphocytes # (Auto) 1.1 Monocytes # (Auto) 0.8 Eosinophils # (Auto) 0.5 Basophils # (Auto) 0.2 CBC Comment DIFF FINAL Differential Comment Date/Time Source Procedure Growth Status 10/22/17 09:25 Blood Peripheral Aerobic Blood Culture - Preliminary NO GROWTH IN 4 DAYS Resulted 10/22/17 09:25 Blood Peripheral Anaerobic Blood Culture - Preliminary NO GROWTH IN 4 DAYS Resulted 10/22/17 09:52 Stool Stool Cryptosporidium Exam - Final NEGATIVE - NO CRYPTOSPORIDIUM ANTIGEN... Complete 10/22/17 09:52 Stool Stool Stool Pus ([facility]) - Final RARE WBC Complete 10/22/17 09:52 Stool Stool Giardia Antigen ([facility]) - Final NEGATIVE - NO GIARDIA ANTIGEN DETECTE... Complete Physical Exam HEENT: Pupils round and reactive to light; normocephalic; atraumatic; no jaundice. NECK: Neck is supple, no JVD, no lymphadenopathy. CHEST: Chest is clear to auscultation and percussion. CARDIAC: Regular rate and rhythm with no murmur gallop or rubs. ABDOMEN: Soft, diarrhea mild, improving amounts no hepatosplenomegaly; bowel sounds active, EXTREMITIES: No clubbing, cyanosis, or edema LE, edema left upper extremity SKIN: Normal; no rash; no jaundice. 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 mild anxiety over condition (Joann Patricio) Assessment and Plan Assessment: (1) Thrombosis, portal vein ICD Codes: I81 - Portal vein thrombosis (2) History of pancreatitis ICD Codes: Z87.19 - Personal history of other diseases of the digestive system (3) Abdominal pain ICD Codes: R10.9 - Unspecified abdominal pain (4) Portal vein thrombosis ICD Codes: I81 - Portal vein thrombosis Status: Acute (5) Epigastric pain ICD Codes: R10.13 - Epigastric pain; R19.7 - Diarrhea, unspecified Status: Acute (6) Vomiting and diarrhea ICD Codes: R11.10 - Vomiting, unspecified; R19.7 - Diarrhea, unspecified Status: Acute (7) Elevated hemoglobin ICD Codes: D58.2 - Other hemoglobinopathies Plan Abdominal pain, epigastric and. Umbilical possible due to portal vein thrombosis, patient also has new splenomegaly, Hemotology consult done. Plam to continue Lovenox. CT of the abdomen and pelvis done on 10-22, shows nonocclusive thrombus involving the portal vein. There is no wall thickening involving the bowel structures. There is no use splenomegaly with diffusely heterogenous spleen concerning for a infiltrating process. The splenic vein is patent, prior cholecystectomy EtOH usage, symptoms are possibly secondary to her extended abuse GERD, possible with her epigastric pain, and generalized abd. pain. which is worse this am. Stool incontinent. Diagnosis norovirus Plan; Diet as tolerated Medications for nausea Consider ID consult PPI by mouth Stable from a GI perspective, no further testing needed, gradual recovery from Norovirus Case discussed with , further testing will be based on findings and symptoms Seen on his behalf (Joann Patricio) Physician Comments Stable from GI point of view, please notify us if needed. (Alexia Gama MD) Joann Patricio Oct 26, 2017 12:52 Alexia Gama MD Oct 26, 2017 15:20
[2017-10-26 13:02] LABS: BICARBONATE 23.2 MEQ/L (21.0-32.0); POTASSIUM 3.4 MEQ/L (3.5-5.1)
--- NOTE | 2017-10-26 14:07 | HHI.DS ---
Discharge Summary Admission Date Oct 22, 2017 at 10:23 Admitting Diagnosis epigastric pain (1) Portal vein thrombosis Diagnosis: Principal Plan: Hematology consulted (polycythemia, leukocytosis with splenic infiltrate ; questions regarding diagnostic work-up and anticoagulation management) -Continue Lovenox 85mg BID, start apixaban outpatient -Will need 6 months of anticoagulation -Flow cytometry pending Impression: Unclear etiology. Patient with prior cholecystectomy after gallstone pancreatitis but no knowledge of cirrhosis/hepatic disease. Alcohol intake 3-4 drinks/week. CT A/P 10/22- Nonocclusive thrombus involving portal vein; no wall thickening involving the bowel structures to suggest venous congestion or acute inflammatory process. New splenomegaly with a diffusely heterogenous spleen concerning for an infiltrating process. Splenic vein patent not suspected related to venous congestion. Prior cholecystectomy ICD Codes: I81 - Portal vein thrombosis Status: Acute (2) Norovirus Diagnosis: Principal Plan: Symptomatic control GGT and AFP negative -GI consulted-appreciate recs -Colonoscopy and EGD 10/25, was cancelled and never completed -Await recommendations -CLD -Stool studies show norovirus -Zofran 4mg IV PRN for nausea -Protonix ICD Codes: A08.11 - Acute gastroenteropathy due to [place] agent Status: Acute (3) Splenomegaly Diagnosis: Principal Plan: -Hematology consulted -Will follow outpatient Impression: Unclear etiology CT A/P 10/22- Nonocclusive thrombus involving portal vein; no wall thickening involving the bowel structures to suggest venous congestion or acute inflammatory process. New splenomegaly with a diffusely heterogenous spleen concerning for an infiltrating process. Splenic vein patent not suspected related to venous congestion. Prior cholecystectomy ICD Codes: R16.1 - Splenomegaly, not elsewhere classified Status: Acute (4) Leukocytosis Diagnosis: Principal Plan: Likely 2/2 norovirus infection, improving -Blood cultures NGTD ICD Codes: D72.829 - Elevated white blood cell count, unspecified (5) Elevated hemoglobin Diagnosis: Principal Plan: Improving, may be hemoconcentrated -Continue to monitor -Continue IV NS at 125ml/hr -Will trend CBC -Hematology consulted -Possibly polycythemia vera -DELIA mutation labs pending ICD Codes: D58.2 - Other hemoglobinopathies Status: Acute (6) HTN (hypertension) Diagnosis: Secondary Plan: Impression: PMH HTN on Lisinopril 20mg daily -Will continue Lisinopril 20mg daily -Will have Vasotec 1.25mg IV PRN when not able to tolerate oral intake ICD Codes: I10 - Essential (primary) hypertension Status: Chronic (7) Fluids, Electrolyes, and Nutrition Plan: Fluids: Continue maintenance NS at 125ml/hr Electrolytes: wnl on admission; will monitor and replete as needed Nutrition: Will advance diet as tolerated DVT ppx: therapeutic lovenox Status: Acute Brief History Mrs. Butler is a 51 yo F with PMH of ductal carcinoma in situ (s/p lumpectomy, radiation), HTN, gallstone pancreatitis s/p cholecystectomy who presented for evaluation of abdominal pain, vomiting, and diarrhea. Patient's symptoms initially started with nausea and vomiting last night; her vomitus turned greenish in color. Patient also began to experience abdominal pain and diarrhea. Abdominal pain is worst in central abdomen in umbilical and epigastric areas but radiates all over her abdomen. Patient also reports L flank pain. Patient has taken Pepto Bismol for pain without improvement. Patient describes her pain as constant with some stabbing nature. Patient's diarrhea was frequent; patient did not see change in stool color or evidence of blood in stool. Patient initially thought her abdominal pain was similar to prior episode of pancreatitis in 11/2015. Patient also noticed having a rapid heartbeat overnight. No chest pain, shortness of breath, or fevers; patient felt subjective chills. No known sick contacts. Patient has had normal urination. Prior to recent onset of symptoms, patient has felt normally. Patient lost ~30 lbs in 8 mo but attributes this to a new exercise regimen. Patient takes Lisinopril for high blood pressure. Patient last seen by her PCP Dr. Porter ~ 1 mo ago. Patient has chronic hemorrhoids with occasional blood in stool. Patient has had improvement in abdominal pain and nausea since arriving in ED. CBC/BMP: 10/26/17 1226 10/26/17 1226 Significant Findings Laboratory Tests Test 10/23/17 21:35 10/24/17 09:26 10/25/17 10:26 10/26/17 12:26 White Blood Count 20.0 TH/MM3 (4.0-11.0) 16.4 TH/MM3 (4.0-11.0) 17.7 TH/MM3 (4.0-11.0) Red Blood Count 6.59 MIL/MM3 (4.00-5.30) 6.35 MIL/MM3 (4.00-5.30) 6.27 MIL/MM3 (4.00-5.30) Hematocrit 46.8 % (35.0-46.0) Mean Corpuscular Volume 71.0 FL (80.0-100.0) 71.6 FL (80.0-100.0) 71.4 FL (80.0-100.0) Mean Corpuscular Hemoglobin 22.1 PG (27.0-34.0) 22.6 PG (27.0-34.0) 22.7 PG (27.0-34.0) Mean Corpuscular Hemoglobin Concent 31.1 % (32.0-36.0) 31.5 % (32.0-36.0) 31.7 % (32.0-36.0) Red Cell Distribution Width 18.8 % (11.6-17.2) 18.9 % (11.6-17.2) 19.0 % (11.6-17.2) Neutrophils (%) (Auto) 82.8 % (16.0-70.0) 85.3 % (16.0-70.0) Lymphocytes (%) (Auto) 8.1 % (9.0-44.0) 6.4 % (9.0-44.0) Neutrophils # (Auto) 16.6 TH/MM3 (1.8-7.7) 15.1 TH/MM3 (1.8-7.7) Eosinophils # (Auto) 0.6 TH/MM3 (0-0.4) 0.5 TH/MM3 (0-0.4) Basophils # (Auto) 0.3 TH/MM3 (0-0.2) Blood Urea Nitrogen 6 MG/DL (7-18) 5 MG/DL (7-18) 5 MG/DL (7-18) Total Protein 6.0 GM/DL (6.4-8.2) Albumin 2.7 GM/DL (3.4-5.0) Calcium Level 7.8 MG/DL (8.5-10.1) 8.4 MG/DL (8.5-10.1) 8.1 MG/DL (8.5-10.1) Aspartate Amino Transf (AST/SGOT) 11 U/L (15-37) Potassium Level 3.3 MEQ/L (3.5-5.1) 3.4 MEQ/L (3.5-5.1) 3.4 MEQ/L (3.5-5.1) Chloride Level 108 MEQ/L (98-107) 110 MEQ/L (98-107) 109 MEQ/L (98-107) Creatinine 0.48 MG/DL (0.50-1.00) PE at Discharge GENERAL: No acute distress, lying in bed CARDIOVASCULAR: Regular rate and rhythm. RESPIRATORY: No accessory muscle use. Clear to auscultation. Breath sounds equal bilaterally. GASTROINTESTINAL: Abdomen soft, non-tender, nondistended. BS+ MUSCULOSKELETAL: Lower Extremities without clubbing, cyanosis, or edema. NEUROLOGICAL: Awake and alert. No obvious cranial nerve deficits. Normal speech. PSYCHIATRIC: Appropriate mood and affect; insight and judgment normal. Hospital Course Patient admitted on 10/22 following vomiting and diarrhea. Found on CT in the ED : Nonocclusive thrombus involving portal vein; no wall thickening involving the bowel structures to suggest venous congestion or acute inflammatory process. New splenomegaly with a diffusely heterogenous spleen concerning for an infiltrating process. Splenic vein patent not suspected related to venous congestion. GI and Heme/onc consulted. Diarrhea continued throughout stay. Stool studies positive for norovirus. Patient was started on lovenox while in hospital for the thrombus. Hematology recommended: "When her next dose of lovenox is due she will start taking apixaban 10 mg PO BID x 7 days followed by 5 mg PO BID. She will continue for a minimum of three months. At three months will readdress need for continuation of anticoagulation vs cessation. Will arrange close follow up in hematology clinic in the next 1- 2 weeks." Hematology will also follow up flow cytometry, BCR/ABL and JAK2 for patient's leukocytosis. They suggest it is possibly due to under[place] myeloproflierative neoplasm vs reactive from infection. At the time of discharge patient had improving diarrhea, stable labs, stable vitals. Pt Condition on Discharge: Stable Discharge Disposition: Discharge Home Discharge Instructions DIET: Follow Instructions for: As Tolerated, No Restrictions Speech Therapy-Diet Recommends: Regular Activities you can perform: Regular-No Restrictions Follow up Referrals: Gastroenterology - 1 Week Hematology - 1 Week PCP Follow-up - 1 Week New Medications: Apixaban (Eliquis) 5 Mg Tab 5 MG PO BID for Blood Clot Prevention, #60 TAB 0 Refills Take 10mg twice daily for 7 days, then 5mg twice daily Pantoprazole (Pantoprazole) 40 Mg Tab 40 MG PO DAILY, #30 TAB Thomas Pratt MD R1 Oct 26, 2017 14:07
--- NOTE | 2017-10-26 14:08 | HHI.DCPOC ---
Discharge Care Plan Diagnosis: (1) Norovirus (2) Thrombosis, portal vein Goals to Promote Your Health * To prevent worsening of your condition and complications * To maintain your health at the optimal level Directions to Meet Your Goals Take your medications as prescribed Follow your dietary instruction Follow activity as directed Keep your appointments as scheduled Take your immunizations and boosters as scheduled If your symptoms worsen call your PCP, if no PCP go to Urgent Care Center or Emergency Room Smoking is Dangerous to Your Health. Avoid second hand smoke Call the 24-hour hour crisis hotline for domestic abuse at Thomas Pratt MD R1 Oct 26, 2017 14:08
--- NOTE | 2017-10-26 14:17 | PD.ONC.PN ---
Subjective Subjective Remarks Ms. Butler is feeling much better this morning. Diarrhea and abdominal pain have improved. She still has bloating however this is not as bad as prior. Objective Data Date Time Temp Pulse Resp B/P (MAP) Pulse Ox O2 Delivery O2 Flow Rate FiO2 10/26/17 12:27 98.2 68 20 133/78 (96) 96 10/26/17 04:57 98.2 71 18 139/72 (94) 95 10/26/17 03:47 74 10/26/17 01:26 97.7 79 18 135/72 (93) 96 10/26/17 00:20 81 10/25/17 20:32 65 10/25/17 20:10 98.4 93 18 157/75 (102) 96 10/25/17 16:54 97.9 70 18 128/60 (82) 97 10/25/17 16:15 70 Result Diagram: 10/26/17 1226 10/26/17 1226 Laboratory Results Laboratory Tests Test 10/26/17 12:26 White Blood Count 17.7 TH/MM3 Red Blood Count 6.27 MIL/MM3 Hemoglobin 14.2 GM/DL Hematocrit 44.8 % Mean Corpuscular Volume 71.4 FL Mean Corpuscular Hemoglobin 22.7 PG Mean Corpuscular Hemoglobin Concent 31.7 % Red Cell Distribution Width 19.0 % Platelet Count 300 TH/MM3 Mean Platelet Volume 8.9 FL Neutrophils (%) (Auto) 85.3 % Lymphocytes (%) (Auto) 6.4 % Monocytes (%) (Auto) 4.5 % Eosinophils (%) (Auto) 2.9 % Basophils (%) (Auto) 0.9 % Neutrophils # (Auto) 15.1 TH/MM3 Lymphocytes # (Auto) 1.1 TH/MM3 Monocytes # (Auto) 0.8 TH/MM3 Eosinophils # (Auto) 0.5 TH/MM3 Basophils # (Auto) 0.2 TH/MM3 CBC Comment DIFF FINAL Differential Comment Blood Urea Nitrogen 5 MG/DL Creatinine 0.48 MG/DL Random Glucose 88 MG/DL Calcium Level 8.1 MG/DL Sodium Level 141 MEQ/L Potassium Level 3.4 MEQ/L Chloride Level 109 MEQ/L Carbon Dioxide Level 23.2 MEQ/L Anion Gap 9 MEQ/L Estimat Glomerular Filtration Rate 136 ML/MIN Administered Medications Medications (Trade) Dose Ordered Sig/Steph Route PRN Reason Start Time Stop Time Status Last Admin Dose Admin Sodium Chloride 1,000 ml @ 125 mls/hr Q8H IV 10/22/17 11:39 10/25/17 22:27 Sodium Chloride (NS Flush) 2 ml BID IV FLUSH 10/22/17 21:00 10/24/17 22:38 Lisinopril (Prinivil) 20 mg DAILY PO 10/23/17 09:00 10/26/17 10:01 Ondansetron HCl (Zofran Inj) 4 mg Q8HR PRN IV PUSH NAUSEA OR VOMITING 10/22/17 12:45 10/23/17 08:39 Enoxaparin Sodium (Lovenox Inj) 90 mg Q12H SQ 10/22/17 15:00 10/26/17 03:01 Pantoprazole Sodium (Protonix) 40 mg Q12HR PO 10/22/17 14:15 10/26/17 10:01 Morphine Sulfate (Morphine Inj) 2 mg Q3H PRN IM PAIN SCALE 8 TO 10 10/22/17 20:30 10/23/17 17:16 Objective Remarks GENERAL: Well-nourished, well-developed patient. SKIN: Warm and dry. HEAD: Normocephalic. EYES: No scleral icterus. No injection or drainage. NECK: Supple, trachea midline. No JVD or lymphadenopathy. LYMPHATIC: No adenopathy. CARDIOVASCULAR: Regular rate and rhythm without murmurs. RESPIRATORY: Breath sounds equal bilaterally. No accessory muscle use. GASTROINTESTINAL: mild distention, soft, nontender EXTREMITIES: No cyanosis, or edema. MUSCULOSKELETAL: Adequate muscle tone. NEUROLOGICAL: No obvious focal deficit. Awake, alert, and oriented x3. PSYCHIATRIC: Appropriate mood and affect; insight and judgment normal. Assessment/Plan Problem List: (1) Portal vein thrombosis ICD Codes: I81 - Portal vein thrombosis Status: Acute Plan: continue Lovenox --CT ab and pelvis showed nonocclusive thrombus involving the portal vein. No wall thickening involving the bowel structures to suggest either congestion or acute inflammatory process. New splenomegaly with a diffusely heterogeneous spleen concerning for an infiltrating process. The splenic vein is patent. Prior cholecystectomy. --patient will need 6 months of anticoagulation therapy. --Will start off while inpatient with Lovenox therapy. Will continue to closely monitor symptoms. --start on apixaban outpatient once her acute issues have resolved. +splenomegaly with leukocytosis and elevated hemoglobin. ?d/t hemoconcentration --check flow cytometry to rule out PNH and to evaluate for other inherited thrombophilia. Assessment 1. Portal vein thrombosis: on Lovenox therapy currently. Uncertain of etiology, possible risk factors include norovirus infection, myelproliferative neoplasm as she has elevated WBC. 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 Discussed that we have the most data (large phase III clinical trials) for warfarin in patients with clots in atypical locations including PV thrombosis. There have been recent case reports that detail successful treatment of PV thrombosis with DOACs, but no large trials that have currently resulted. Ms. Butler reports that she would like to avoid warfarin therapy if possible. She has good liver and renal function. Discussed avoid of contact sports or activites that would placed patient at risk of bleeding while on anticoagulation. She will not drink ETOH while on anticoagulation. When her next dose of lovenox is due she will start taking apixaban 10 mg PO BID x 7 days followed by 5 mg PO BID. She will continue for a minimum of three months. At three months will readdress need for continuation of anticoagulation vs cessation. Will arrange close follow up in hematology clinic in the next 1-2 weeks. 2. Leukocytosis: flow cytometry, BCR/ABL and JAK2 pending. Possibly due to [place] myeloproflierative neoplasm vs reactive from infection. Linda Meyer MD Oct 26, 2017 14:17
[2017-10-26] MEDS ORDERED: PANT40TA3 PO (14:25)
[2017-10-26] MEDS ORDERED: APIX5TAB PO (14:26)
[2017-10-28 19:51] LABS: BETA2 GLYCOPROTEIN I AB IGA LESS THAN 9.0 SAU (< OR = 20)
[2017-10-28 23:52] LABS: PHOS SERINE AB IGA LESS THAN 20 U/mL (<20); PHOS SERINE AB IGG LESS THAN 10 U/mL (<10); PHOS SERINE AB IGM LESS THAN 25 U/mL (<25)
[2017-10-31] MEDS ORDERED: LISI-515 PO (08:29)
== END 2017-10-26 18:21 | disposition home or self-care (01) | DRG 391 ==
LOC: NEPE 07:32 → NEDA 10:23 → NEPGCP 12:18
PROVIDERS: ADMIT Family Medicine; ATTEND Family Medicine
DX: A08.11 Acute gastroenteropathy due to Norwalk agent (principal); I81 Portal vein thrombosis; R65.10 Systemic inflammatory response syndrome (SIRS) of non-infectious origin without acute organ dysfunction; R16.1 Splenomegaly, not elsewhere classified; I10 Essential (primary) hypertension; R00.0 Tachycardia, unspecified; K21.9 Gastro-esophageal reflux disease without esophagitis; F10.10 Alcohol abuse, uncomplicated; R60.0 Localized edema; K64.9 Unspecified hemorrhoids; Z90.49 Acquired absence of other specified parts of digestive tract; Z92.3 Personal history of irradiation; Z85.3 Personal history of malignant neoplasm of breast
CPT/HCPCS: 71010; 74177; 76937; 80048; 80053; 81001; 81240; 81241; 82105; 82668; 82977; 83605; 83690; 85025; 85027; 85060; 85610; 86146; 86147; 86148; 87040; 87205; 87328; 87329; 87506; 93971; 96361; 96365; 96375; J1650; J2270; J2405; J2543; J7030; Q9967

== ENCOUNTER 2017-12-03 09:52 | Day surgery (SDC) | payer OTHER ==
[~2017-12-03] VITALS: Ht 170.2 cm; Wt 88.6 kg
[~2017-12-03 09:52] MED LIST changes: +APIX5TAB PO; -BENZ100 PO; -DIFL150T PO; +LORT5TAB PO; +PANT40TA3 PO; +Z.0.BCPILL PO
[2017-12-03 10:07] VITALS: BP 144/92; PULSE 81; RESP 20; TEMP 98.1; O2SAT 97
[2017-12-03] MEDS ORDERED: MIDAZOLAM HCL 2 MG/2 ML VIAL ONE (10:53)
[2017-12-03 10:54] LABS: AUTOMATED NEUTROPHIL # 17.2 TH/MM3 (1.8-7.7); BASOPHIL # 0.1 TH/MM3 (0-0.2); BASOPHIL % 0.4 % (0.0-2.0); EOSINOPHIL # 0.8 TH/MM3 (0-0.4); EOSINOPHIL % 3.9 % (0.0-4.0); HEMATOCRIT 49.8 % (35.0-46.0); LYMPH % 10.9 % (9.0-44.0); LYMPHOCYTE # 2.3 TH/MM3 (1.0-4.8); MEAN CELL VOLUME 69.1 FL (80.0-100.0); MEAN CORPUSCULAR HEMOGLOBIN 22.2 PG (27.0-34.0); MEAN CORPUSCULAR HGB CONC 32.1 % (32.0-36.0); MEAN PLATELET VOLUME 8.5 FL (7.0-11.0); MONO % 4.5 % (0.0-8.0); NEUT % 80.3 % (16.0-70.0); PLATELET COUNT 379 TH/MM3 (150-450); RED CELL DISTRIBUTION WIDTH 19.3 % (11.6-17.2); WHITE BLOOD COUNT 21.4 TH/MM3 (4.0-11.0)
[2017-12-03] MEDS ORDERED: fentaNYL CITRATE 250 MCG/5 ML AMP ONE (10:55)
[2017-12-03 10:57] LABS: RED BLOOD COUNT 7.21 MIL/MM3 (4.00-5.30)
[2017-12-03] MEDS ORDERED: SODIUM CHLOR 0.9% 1000 ML INJ 1,000 ML IV SCH (11:30)
[2017-12-03] MEDS ORDERED: LIDOCAINE HCL 1% 20 ML VIAL ONE (11:47)
--- NOTE | 2017-12-03 12:47 | PD.RAD ---
Post CT Procedure Prog Note Pre Procedure Diagnosis: (1) Leukocytosis Post Procedure Diagnosis: (1) Leukocytosis Procedure Date: Dec 03, 2017 Supervising Radiologist: Hernandez Hsu Proceduralist/Assist: jeanie pascal Estimated blood loss: none Anesthesia: Conscious Sedation Plan of Activity Patient to Unit: [facility] Patient Condition: Good See PACS Report for procedural detail/treatment Hernandez Hsu MD Dec 03, 2017 12:47
[2017-12-03 13:05] VITALS: BP 111/61; PULSE 83; RESP 16; TEMP 98.3; O2SAT 94
[2017-12-03 13:20] VITALS: BP 100/59; PULSE 69; RESP 20; O2SAT 95
[2017-12-03 13:50] VITALS: BP 101/64; PULSE 81; RESP 18; O2SAT 95
[2017-12-03 14:20] VITALS: BP 100/67; PULSE 69; RESP 20; O2SAT 97
[2017-12-03 14:50] VITALS: BP 110/67; PULSE 65; RESP 18; O2SAT 98
--- NOTE | 2017-12-03 16:02 | RADRPT ---
EXAM DATE/TIME: 12/03/2017 12:24 [facility] COMPARISON: No previous studies available for comparison. INDICATIONS : Neoplasm. SEDATION TIME: 30 minutes BIOPSY SITE: Right ilac wing MEDICATION(S): 1.) 4 mg midazolam (Versed) IV 2.) 150 mcg fentanyl (Sublimaze) IV DEVICE(S): 1.) 11 gauge Bone marrow biopsy needle MEDICAL HISTORY : Carcinoma, breast. Hypertension. Pancreatitis. SURGICAL HISTORY : Cholecystectomy lumpectomy ENCOUNTER: Initial ACUITY: 1 day PAIN SCORE: 0/10 LOCATION: Bilateral pelvis A total of one core specimen(s) were obtained and sent to the laboratory for pathologic evaluation. PROCEDURE: 1. CT guided bone marrow biopsy. 2. Conscious sedation with continuous EKG and oximetry monitoring. 3. EKG and oximetry remained stable throughout the procedure. Prior to the procedure informed consent was obtained. Any appropriate prior imaging studies were rev iewed. Using automated exposure control and adjustment of the mA and/or kV according to patient size , radiation dose was kept as low as reasonably achievable to obtain optimal diagnostic quality images . DICOM format image data is available electronically for review and comparison. The site was prepped in a sterile fashion. Full sterile technique was used, including cap, mask, earnest rile gloves and gown and a large sterile sheet. Hand hygiene and 2% chlorhexidine and/or betadine/al cohol prep was utilized per protocol for cutaneous antisepsis. The skin and subcutaneous tissues wer e infiltrated with local anesthetic solution. With CT guidance the previously identified target was localized. Biopsy was performed using the presc ribed needle as above. Following biopsy marrow aspiration was performed with repeat puncture. [place] te hemostasis was obtained with compression at the puncture site. Follow-up CT scan reveals no hemorrhage. Conscious sedation was performed with the prescribed dosages and duration as above in the presence of an independent trained radiology nurse to assist in the monitoring of the patient. EKG and oximetry remained stable throughout the procedure. The patient tolerated the procedure well and there were no complications. The patient was sent to Radiology Outpatient Unit in stable condition. CONCLUSION: 1. Uncomplicated CT guided bone marrow aspirate. 2. Uncomplicated CT guided bone marrow biopsy. Hernandez Hsu MD on December 03, 2017 at 15:57 Board Certified Radiologist. This report was verified electronically.
== END 2017-12-03 15:07 | disposition home or self-care (01) ==
LOC: HRAD 09:52 → HRIP 09:56 → HRAD 15:07
PROVIDERS: ATTEND Internal Medicine
DX: D75.1 Secondary polycythemia (principal); I10 Essential (primary) hypertension; K85.90 Acute pancreatitis without necrosis or infection, unspecified; Z85.3 Personal history of malignant neoplasm of breast; Z90.49 Acquired absence of other specified parts of digestive tract
CPT/HCPCS: 38222; 77012; 85025; 85097; 88305; 88311; 88313; 99152; 99153; C1830; J2250; J3010